=== PATIENT | male | born 1960 | race Caucasian/White ===

== ENCOUNTER 2016-11-06 14:02 | Inpatient (IN) | payer OTHER ==
[2016-11-06 15:00] VITALS: BMI 31.8
--- NOTE | 2016-11-06 16:11 | HP ---
CIWA Score - CIWA Score Nausea/Vomitin Muscle Tremors: 3 Anxiety: 3 Agitation: 3 Paroxysmal Sweats: 2 Orientation: 0-Oriented Tacttile Disturbances: 2-Mild Itch/Numbness/Burn Auditory Disturbances: 2-Mild Harshness/Frighten Visual Disturbances: 2-Mild Sensitivity Headache: 2-Mild CIWA-Ar Total Score: 22 Admission ROS BHS - HPI Chief Complaint: i am here to stop drinking alcohol,i have enough Allergies/Adverse Reactions: Allergies Allergy/AdvReac Type Severity Reaction Status Date / Time shellfish derived Allergy Severe Rash Verified 11/06/16 15:41 No Known Drug Allergies Allergy Verified 11/06/16 15:41 History of Present Illness: tis 56 years old male with alcohol dependence,withdrawal symptom,last detox unknown location syncope alcohol dependence nicotine dependence bipolar disorder mmtp 110 mgs/day,last mediated today longest period of sobriety 16 years bad arthritis of right knee need knee immobilization for 2 years and cane saba's cyst left knee - Ebola screening Have you traveled outside of the country in the last 21 days: No Have you had contact with anyone from an Ebola affected area: No Have you been sick,other than usual withdrawal symptoms: No Patient History - Patient Medical History Hx Anemia: No Hx Asthma: Yes (on albuterol inhealer) Hx Chronic Obstructive Pulmonary Disease (COPD): No Hx Cancer: No Hx Cardiac Disorders: No Hx Congestive Heart Failure: No Hx Hypertension: Yes (on med) Hx Hypercholesterolemia: No Hx Pacemaker: No HX Cerebrovascular Accident: No Hx Seizures: No Hx Dementia: No Hx Diabetes: No Hx Gastrointestinal Disorders: No Hx Liver Disease: No Hx Genitourinary Disorders: No Hx Sexually Transmitted Disorders: No Hx Renal Disease (ESRD): No Hx Thyroid Disease: No Hx Human Immunodeficiency Virus (HIV): No (last 2014 negative) Hx Hepatitis C: No Hx Depression: Yes (on med) Hx Suicide Attempt: No Hx Bipolar Disorder: Yes (bipolar depression) Hx Schizophrenia: No Other Medical History: no suicidal,no homicidal - Patient Surgical History Past Surgical History: Yes Hx Neurologic Surgery: No Hx Cataract Extraction: No Hx Cardiac Surgery: No Hx Lung Surgery: No Hx Breast Surgery: No Hx Breast Biopsy: No Hx Abdominal Surgery: No Hx Appendectomy: No Hx Cholecystectomy: No Hx Genitourinary Surgery: No Hx Section: No Hx Orthopedic Surgery: No Anesthesia Reaction: No - PPD History Previous Implant?: Yes Documented Results: Negative w/proof Implanted On Prior R Admission?: Yes Date: 07/03/14 Results: 0 mm PPD to be Administered?: Yes - Smoking Cessation Smoking history: Current every day smoker Have you smoked in the past 12 months: Yes Aproximately how many cigarettes per day: 5 Hx Chewing Tobacco Use: No Initiated information on smoking cessation: Yes 'Breaking Loose' booklet given: 11/06/16 - Substance & Tx. History Hx Alcohol Use: Yes Hx Substance Use: No Substance Use Type: Alcohol Hx Substance Use Treatment: Yes (06/02 unknown location) - Substances Abused Alcohol-beer Route: Oral Frequency: Daily Amount used: 1-6 pk. (24 oz.) Age of first use: 12 Date of Last Use: 11/06/16 Family Disease History - Family Disease History Family History: Denies Admission Physical Exam S - Vital Signs Vital Signs: Vital Signs - 24 hr 11/06/16 14:58 Temperature 97.5 F L Pulse Rate 73 Respiratory 18 Rate Blood Pressure 146/77 - Physical General Appearance: Yes: Moderate Distress, Tremorous, Irritable, Sweating HEENTM: Yes: MONTY, Pharynx Normal, Nasal Congestion Respiratory: Yes: Wheezing Neck: Yes: Within Normal Limits, Supple, Trachea in good position Breast: Yes: Within Normal Limits Cardiology: Yes: Within Normal Limits, Regular Rhythm, Regular Rate, S1, S2 Abdominal: Yes: Within Normal Limits, Normal Bowel Sounds, Non Tender, Flat, Soft Genitourinary: Yes: Within Normal Limits Back: Yes: Muscle Spasm Musculoskeletal: Yes: Back pain (pain in the right knee on kneee immobilization and cane walking saba's cyst left), Joint Stiffness, Muscle Pain Extremities: Yes: Tremors (pain in the right knee), Other Neurological: Yes: head counselor II-XII NML intact, Fully Oriented, Alert, Motor Strength 5/5 Integumentary: Yes: Dry Lymphatic: Yes: Within Normal Limits - Diagnostic (1) Alcohol dependence with uncomplicated withdrawal Current Visit: Yes Status: Acute (2) Obesity Current Visit: No Status: Acute (3) Opioid dependence on agonist therapy Current Visit: No Status: Acute (4) Bipolar disorder Current Visit: No Status: Chronic (5) HTN (hypertension) Current Visit: No Status: Chronic (6) Nicotine dependence Current Visit: No Status: Chronic (7) Asthma Current Visit: Yes Status: Acute (8) COPD (chronic obstructive pulmonary disease) Current Visit: No Status: Acute (9) Arthritis Current Visit: Yes Status: Acute (10) Use of cane as ambulatory aid Current Visit: Yes Status: Acute (11) Saba cyst Current Visit: Yes Status: Acute Cleared for Admission S - Detox or Rehab [facility] Level of Care: Medically Managed Detox Regimen/Protocol: Librium S Breath Alcohol Content Breath Alcohol Content: 0.051 Urine Drug Screen - Results Drug Screen Negative: No Urine Drug Screen Results: BZO-Benzodiazepines, MTD-Methadone
[2016-11-06] MEDS ORDERED: MAGNESIUM HYDROX 2400MG/30ML ORAL SUSPENSION 30 ML CUP PO PRN (16:24)
[2016-11-06] MEDS ORDERED: diphenhydrAMINE HCL 50 MG CAPSULE PO PRN (16:24)
[2016-11-06] MEDS ORDERED: ACETAMINOPHEN 325 MG TABLET (FP) PO PRN (16:24)
[2016-11-06] MEDS ORDERED: MAGNESIUM CITRATE 300 ML BOTTLE PO PRN (16:24)
[2016-11-06] MEDS ORDERED: LOPERAMIDE HCL 2 MG CAPSULE PO PRN (16:24)
[2016-11-06] MEDS ORDERED: chlordiazePOXIDE HCL 25 MG CAPSULE PO PRN (16:24)
[2016-11-06] MEDS ORDERED: P-EPHED 60MG/TRIPROLIDI 2.5MG TABLET PO PRN (16:24)
[2016-11-06] MEDS ORDERED: MAG HYDROX/AL HYDROX/SIMETH 30 ML UNIT-DOSE CUP PO PRN (16:24)
[2016-11-06] MEDS ORDERED: hydrOXYzine PAMOATE 50 MG CAPSULE (FP) PO PRN (16:24)
[2016-11-06] MEDS ORDERED: IBUPROFEN 400 MG TABLET (FP) PO PRN (16:24)
[2016-11-06] MEDS ORDERED: NICOTINE POLACRILEX 2 MG GUM BC PRN (16:24)
[2016-11-06] MEDS ORDERED: MENTHOL/PHENOL 1 EACH UD MM PRN (16:24)
[2016-11-06] MEDS ORDERED: guaiFENesin/D-METHORPHAN HB 10 ML UNIT-DOSE CUPS PO PRN (16:24)
[2016-11-06] MEDS ORDERED: chlordiazePOXIDE HCL 25 MG CAPSULE PO ONE (18:00)
[2016-11-06] MEDS: ASPIRIN 81 MG CHEWABLE TABLETS PO SCH (18:09)
[2016-11-06] MEDS: amLODIPine BESYLATE 10 MG TABLET (FP) PO SCH (18:09)
[2016-11-06] MEDS: MONTELUKAST NA 10 MG TABLET PO SCH (18:09)
[2016-11-06] MEDS: NICOTINE 14 MG/24 HOURS TOPICAL PATCH TD SCH (18:10)
[2016-11-06 20:49] LABS: URINE APPEARANCE CLEAR; URINE BILIRUBIN NEGATIVE (NEGATIVE); URINE BLOOD NEGATIVE (NEGATIVE); URINE COLOR STRAW; URINE GLUCOSE (UA) NEGATIVE (NEGATIVE); URINE KETONE NEGATIVE (NEGATIVE); URINE LEUK ESTERASE NEGATIVE (NEGATIVE); URINE NITRITE NEGATIVE (NEGATIVE); URINE PROTEIN NEGATIVE (NEGATIVE); URINE UROBILINOGEN NEGATIVE E.U./dl (0.2-1.0)
[2016-11-06] MEDS: chlordiazePOXIDE HCL 25 MG CAPSULE PO SCH (22:11)
[2016-11-06] MEDS: THIAMINE HCL 100 MG TABLET (FP) PO SCH (22:11)
[2016-11-07] MEDS: chlordiazePOXIDE HCL 25 MG CAPSULE PO SCH ×4 (05:54→22:14)
[2016-11-07] MEDS ORDERED: cloNIDine HCL 0.1 MG TABLET PO PRN (07:33)
[2016-11-07] MEDS ORDERED: METHADONE HCL 10 MG TABLET PO ONE (08:52)
[2016-11-07] MEDS ORDERED: METHADONE 80 MG, METHADONE 30 MG PO ONE (09:00)
[2016-11-07] MEDS ORDERED: METHADONE HCL 10 MG TABLET ONE (09:12)
[2016-11-07] MEDS ORDERED: METHADONE HCL 40 MG DISPERSABLE TABLET ONE (09:12)
[2016-11-07] MEDS: ASPIRIN 81 MG CHEWABLE TABLETS PO SCH (09:50)
[2016-11-07] MEDS: amLODIPine BESYLATE 10 MG TABLET (FP) PO SCH (09:50)
[2016-11-07] MEDS: MONTELUKAST NA 10 MG TABLET PO SCH (09:50)
[2016-11-07] MEDS: PRENATAL VITAMINS W/ FOLIC ACID TABLET (FP) PO SCH (09:50)
[2016-11-07 10:11] LABS: MCH 24.7 pg (25.7-33.7); MCHC 31.2 g/dl (32.0-35.9); MEAN PLT VOLUME 8.5 fl (7.5-11.1); PLATELET COUNT 115 K/MM3 (134-434); RDW 16.1 % (11.9-15.9); WHITE BLOOD COUNT 5.3 K/mm3 (4.0-10.0)
--- NOTE | 2016-11-07 10:37 | CONSULT ---
[facility] Psychiatric Consult - Data Date of interview: 11/07/16 Admission source: [facility] Identifying data: This is 56 years old male ambulating with cane, with psychiatric hospitalizatioi history , history of Bipolar Disorder, intoxicated with: Alcohol and Benzodiazepins Substance Abuse History: - Smoking Cessation. Smoking history: Current every day smoker. Have you smoked in the past 12 months: Yes. Aproximately how many cigarettes per day: 5. Hx Chewing Tobacco Use: No. Initiated information on smoking cessation: Yes. 'Breaking Loose' booklet given: 11/06/16. - Substance & Tx. History. Hx Alcohol Use: Yes. Hx Substance Use: No. Substance Use Type : Alcohol. Hx Substance Use Treatment: Yes (06/02 unknown location). - Substances Abused. Alcohol-beer. Route: Oral. Frequency: Daily. Amount used: 1-6 pk. (24 oz.). Age of first use: 12. Date of Last Use: 11/06/16 Medical History: Obesity, Arthritis, Asthma. Saba Cyst history, DVT, COPD, HTN Psychiatric History: Patient reprots to carry Bipolar Disorder with most recent psychiatric admission on more then 5 years ago, reports taking prior to admission. Abilify 10mg poqd. Trazodone 100mg po qhs Physical/Sexual Abuse/Trauma History: Denies Additional Comment: Zoloft 59mg poqd Mental Status Exam - Mental Status Exam Alert and Oriented to: Person Cognitive Function: Fair Patient Appearance: Unkempt Mood: Sad Patient Behavior: Sedated Speech Pattern: Delayed Voice Loudness: Mildly Soft/Quiet Thought Process: Goal Oriented Thought Disorder: Being Controlled Hallucinations: Denies Suicidal Ideation: Denies Homicidal Ideation: Denies Insight/Judgement: Fair Sleep: Difficulty falling asleep Appetite: Weight gain Muscle strength/Tone: Mild Hypotonicity Gait/Station: Shuffling Additional Comments: Abilify 10mg poqd. Trazodone 100mg po qhs Psychiatric Findings - Problem List ([place] 1, 2,3) (1) Alcohol dependence with uncomplicated withdrawal Current Visit: Yes Status: Acute (2) Alcohol dependence Current Visit: No Status: Chronic (3) Bipolar disorder Current Visit: No Status: Chronic (4) Nicotine dependence Current Visit: No Status: Chronic - Initial Treatment Plan Initial Treatment Plan: Abilify 10mg poqd. Trazodone 100mg po qhs
[2016-11-07] MEDS: NICOTINE 14 MG/24 HOURS TOPICAL PATCH TD SCH (10:45)
--- NOTE | 2016-11-07 11:00 | PN ---
S CIWA - CIWA Score Nausea/Vomitin-Mild Nausea/No Vomiting Muscle Tremors: 5 Anxiety: 4-Mod. Anxious/Guarded Agitation: 4-Moderately Restless Paroxysmal Sweats: 3 Orientation: 0-Oriented Tacttile Disturbances: 1-Very Mild Itch/Numbness Auditory Disturbances: 0-None Visual Disturbances: 0-None Headache: 0-None Present CIWA-Ar Total Score: 18 BHS Progress Note (SOAP) Subjective: Anxiety,tremors,sweating,interrupted sleep,restless Objective: 11/07/16 10:57 Vital Signs - 8 hr 11/07/16 11/07/16 11/07/16 03:19 06:27 07:34 Temperature 96.6 F L Pulse Rate 78 75 Respiratory 18 148 H Rate Blood Pressure 162/92 165/100 11/07/16 11/07/16 11/07/16 07:35 07:50 09:38 Temperature 97.2 F L Pulse Rate 77 75 81 Respiratory 20 Rate Blood Pressure 163/101 165/100 147/78 Laboratory Tests 11/06/16 11/07/16 19:30 07:00 WBC 5.3 RBC 5.51 Hgb 13.6 Hct 43.5 MCV 79.0 L MCHC 31.2 L RDW 16.1 H D Plt Count 115 L MPV 8.5 Urine Color Straw Urine Appearance Clear Urine pH 6.0 Ur Specific [place] 1.005 Urine Protein Negative Urine Glucose (UA) Negative Urine Ketones Negative Urine Blood Negative Urine Nitrite Negative Urine Bilirubin Negative Urine Urobilinogen Negative Ur Leukocyte Esterase Negative labs noted Assessment: 11/07/16 10:58 Withdrawal sx. Plan: Continue detox
[2016-11-07 11:16] LABS: ALBUMIN 3.3 g/dl (3.4-5.0); ALK PHOS 100 U/L (45-117); ANION GAP 7 (8-16); BILIRUBIN,TOTAL 0.9 mg/dL (0.2-1.0); CALCIUM 9.1 mg/dL (8.5-10.1); CO2 31 mmol/L (21-32); CREATININE 0.5 mg/dL (0.7-1.3); GLUCOSE,RANDOM 108 mg/dL (74-106); SGOT/AST 22 U/L (15-37); SGPT/ALT 28 U/L (12-78); TOT PROT 7.1 g/dl (6.4-8.2)
[2016-11-07] MEDS: ARIPiprazole 10 MG TABLET PO SCH (12:45)
--- NOTE | 2016-11-07 17:15 | EKG ---
Test Reason : Blood Pressure : / mmHG Vent. Rate : 068 BPM Atrial Rate : 068 BPM P-R Int : 170 ms QRS Dur : 114 ms QT Int : 412 ms P-R-T Axes : 055 -16 049 degrees QTc Int : 438 ms NORMAL SINUS RHYTHM INCOMPLETE RIGHT BUNDLE BRANCH BLOCK INFERIOR INFARCT (CITED ON OR BEFORE 06-NOV-2016) ABNORMAL ECG WHEN COMPARED WITH ECG OF 06-NOV-2016 17:02, NO SIGNIFICANT CHANGE WAS FOUND Confirmed by SON LYMAN MD ([id number]) on 11/07/2016 5:15:31 PM Referred By: Ko Weiner Confirmed By:SON LYMAN MD
--- NOTE | 2016-11-07 17:18 | EKG ---
Test Reason : Blood Pressure : / mmHG Vent. Rate : 064 BPM Atrial Rate : 064 BPM P-R Int : 174 ms QRS Dur : 112 ms QT Int : 430 ms P-R-T Axes : 047 -03 058 degrees QTc Int : 443 ms NORMAL SINUS RHYTHM INFERIOR INFARCT , AGE UNDETERMINED ABNORMAL ECG NO PREVIOUS ECGS AVAILABLE Confirmed by ESMER PINEDA, SON ([id number]) on 11/07/2016 5:17:34 PM Referred By: Ko Weiner Confirmed By:SON LYMAN MD
[2016-11-07] MEDS: ALBUTEROL SO4 6.7 GM HFA INHALER IH PRN (18:26)
[2016-11-07] MEDS: traZODone HCL 100 MG TABLET (FP) PO SCH (22:14)
[2016-11-07] MEDS: THIAMINE HCL 100 MG TABLET (FP) PO SCH (22:14)
[2016-11-08] MEDS ORDERED: METHADONE HCL 40 MG DISPERSABLE TABLET ONE (04:45)
[2016-11-08] MEDS ORDERED: METHADONE HCL 10 MG TABLET ONE (04:45)
[2016-11-08] MEDS: METHADONE 80 MG, METHADONE 30 MG PO SCH (05:14)
[2016-11-08] MEDS: chlordiazePOXIDE HCL 25 MG CAPSULE PO SCH ×3 (05:16→17:07)
[2016-11-08] MEDS ORDERED: METHADONE HCL 10 MG TABLET PO SCH (06:00)
[2016-11-08] MEDS: MONTELUKAST NA 10 MG TABLET PO SCH (10:09)
[2016-11-08] MEDS: ASPIRIN 81 MG CHEWABLE TABLETS PO SCH (10:09)
[2016-11-08] MEDS: NICOTINE 14 MG/24 HOURS TOPICAL PATCH TD SCH (10:09)
[2016-11-08] MEDS: PRENATAL VITAMINS W/ FOLIC ACID TABLET (FP) PO SCH (10:09)
[2016-11-08] MEDS: amLODIPine BESYLATE 10 MG TABLET (FP) PO SCH (10:09)
[2016-11-08] MEDS: ARIPiprazole 10 MG TABLET PO SCH (10:09)
--- NOTE | 2016-11-08 12:15 | PN ---
[facility] CIWA - CIWA Score Nausea/Vomitin-No Nausea/No Vomiting Muscle Tremors: 4-Moderate,w/Arms Extend Anxiety: 4-Mod. Anxious/Guarded Agitation: 3 Paroxysmal Sweats: 2 Orientation: 4Disoriented Place/Person Tacttile Disturbances: 3-Moderate Itch/Numb/Burn Auditory Disturbances: 0-None Visual Disturbances: 0-None Headache: 0-None Present CIWA-Ar Total Score: 20 BHS Progress Note (SOAP) Subjective: Interrupted Sleep, Back ache, Tremors, Constipation, Sweating. Objective: PT. A & O X 1 (DISORIENTED ABOUT DAY/DATE AND ABOUT LOCATION). 11/08/16 12:13 Laboratory Last Values WBC 5.3 K/mm3 (4.0-10.0) 11/07/16 07:00 RBC 5.51 M/mm3 (4.00-5.60) 11/07/16 07:00 Hgb 13.6 GM/dL (11.7-16.9) 11/07/16 07:00 Hct 43.5 % (35.4-49) 11/07/16 07:00 MCV 79.0 fl (80-96) L 11/07/16 07:00 MCHC 31.2 g/dl (32.0-35.9) L 11/07/16 07:00 RDW 16.1 % (11.9-15.9) H D 11/07/16 07:00 Plt Count 115 K/MM3 (134-434) L 11/07/16 07:00 MPV 8.5 fl (7.5-11.1) 11/07/16 07:00 Sodium 139 mmol/L (136-145) 11/07/16 07:00 Potassium 4.3 mmol/L (3.5-5.1) 11/07/16 07:00 Chloride 101 mmol/L (98-107) 11/07/16 07:00 Carbon Dioxide 31 mmol/L (21-32) 11/07/16 07:00 Anion Gap 7 (8-16) L 11/07/16 07:00 BUN 13 mg/dL (7-18) 11/07/16 07:00 Creatinine 0.5 mg/dL (0.7-1.3) L 11/07/16 07:00 Creat Clearance w eGFR > 60 (>60) 11/07/16 07:00 Random Glucose 108 mg/dL (74-106) H 11/07/16 07:00 Calcium 9.1 mg/dL (8.5-10.1) 11/07/16 07:00 Total Bilirubin 0.9 mg/dL (0.2-1.0) D 11/07/16 07:00 AST 22 U/L (15-37) D 11/07/16 07:00 ALT 28 U/L (12-78) D 11/07/16 07:00 Alkaline Phosphatase 100 U/L (45-117) 11/07/16 07:00 Total Protein 7.1 g/dl (6.4-8.2) 11/07/16 07:00 Albumin 3.3 g/dl (3.4-5.0) L 11/07/16 07:00 Urine Color Straw 11/06/16 19:30 Urine Appearance Clear 11/06/16 19:30 Urine pH 6.0 (5.0-8.0) 11/06/16 19:30 Ur Specific [place] 1.005 (1.001-1.035) 11/06/16 19:30 Urine Protein Negative (NEGATIVE) 11/06/16 19:30 Urine Glucose (UA) Negative (NEGATIVE) 11/06/16 19:30 Urine Ketones Negative (NEGATIVE) 11/06/16 19:30 Urine Blood Negative (NEGATIVE) 11/06/16 19:30 Urine Nitrite Negative (NEGATIVE) 11/06/16 19:30 Urine Bilirubin Negative (NEGATIVE) 11/06/16 19:30 Urine Urobilinogen Negative E.U./dl (0.2-1.0) 11/06/16 19:30 Ur Leukocyte Esterase Negative (NEGATIVE) 11/06/16 19:30 RPR Titer Nonreactive (NONREACTIVE) 11/07/16 07:00 LABS NOTED. Assessment: 11/08/16 12:14 WITHDRAWAL SYMPTOMS. Plan: CONTINUE DETOX. PRN MILK OF MAGNESIA FOR CONSTIPATION. ADVISED PATIENT TO FOLLOW-UP WITH EMERGENCY ROOM NURSE / REHAB MEDICAL PROVIDER AFTER DISCHARGE FROM DETOX FOR GENERAL MEDICAL ASSESSMENT AND FOR ANY ABNORMAL ADMISSION LAB VALUES.
[2016-11-08] MEDS: THIAMINE HCL 100 MG TABLET (FP) PO SCH (22:17)
[2016-11-08] MEDS: traZODone HCL 100 MG TABLET (FP) PO SCH (22:17)
[2016-11-08] MEDS: chlordiazePOXIDE 5 MG CAPSULE PO SCH (22:17)
[2016-11-09] MEDS ORDERED: METHADONE HCL 10 MG TABLET ONE (03:40)
[2016-11-09] MEDS ORDERED: METHADONE HCL 40 MG DISPERSABLE TABLET ONE (03:40)
[2016-11-09] MEDS: chlordiazePOXIDE 5 MG CAPSULE PO SCH ×3 (05:40→17:48)
[2016-11-09] MEDS: METHADONE 80 MG, METHADONE 30 MG PO SCH (05:40)
[2016-11-09] MEDS: PRENATAL VITAMINS W/ FOLIC ACID TABLET (FP) PO SCH (10:23)
[2016-11-09] MEDS: ARIPiprazole 10 MG TABLET PO SCH (10:23)
[2016-11-09] MEDS: amLODIPine BESYLATE 10 MG TABLET (FP) PO SCH (10:23)
[2016-11-09] MEDS: MONTELUKAST NA 10 MG TABLET PO SCH (10:23)
[2016-11-09] MEDS: ASPIRIN 81 MG CHEWABLE TABLETS PO SCH (10:23)
[2016-11-09] MEDS: NICOTINE 14 MG/24 HOURS TOPICAL PATCH TD SCH (10:24)
--- NOTE | 2016-11-09 13:28 | PN ---
BHS Progress Note (SOAP) Subjective: Sweating,interrupted sleep,restless Objective: 11/09/16 13:27 Vital Signs - 8 hr 11/09/16 11/09/16 06:19 09:28 Temperature 97.6 F 96.7 F L Pulse Rate 77 76 Respiratory 18 18 Rate Blood Pressure 148/85 161/81 Laboratory Tests 11/06/16 11/07/16 11/07/16 19:30 07:00 07:00 WBC 5.3 RBC 5.51 Hgb 13.6 Hct 43.5 MCV 79.0 L MCHC 31.2 L RDW 16.1 H D Plt Count 115 L MPV 8.5 Sodium 139 Potassium 4.3 Chloride 101 Carbon Dioxide 31 Anion Gap 7 L BUN 13 Creatinine 0.5 L Creat Clearance w eGFR > 60 Random Glucose 108 H Calcium 9.1 Total Bilirubin 0.9 D AST 22 D ALT 28 D Alkaline Phosphatase 100 Total Protein 7.1 Albumin 3.3 L Urine Color Straw Urine Appearance Clear Urine pH 6.0 Ur Specific [place] 1.005 Urine Protein Negative Urine Glucose (UA) Negative Urine Ketones Negative Urine Blood Negative Urine Nitrite Negative Urine Bilirubin Negative Urine Urobilinogen Negative Ur Leukocyte Esterase Negative RPR Titer 11/07/16 07:00 WBC RBC Hgb Hct MCV MCHC RDW Plt Count MPV Sodium Potassium Chloride Carbon Dioxide Anion Gap BUN Creatinine Creat Clearance w eGFR Random Glucose Calcium Total Bilirubin AST ALT Alkaline Phosphatase Total Protein Albumin Urine Color Urine Appearance Urine pH Ur Specific [place] Urine Protein Urine Glucose (UA) Urine Ketones Urine Blood Urine Nitrite Urine Bilirubin Urine Urobilinogen Ur Leukocyte Esterase RPR Titer Nonreactive labs noted Assessment: 11/09/16 13:27 Withdrawal sx. Plan: Continue detox
[2016-11-09] MEDS: LISINOPRIL 10 MG TABLET (FP) PO SCH (14:23)
[2016-11-09] MEDS: ALBUTEROL SO4 6.7 GM HFA INHALER IH PRN (21:23)
[2016-11-09] MEDS: THIAMINE HCL 100 MG TABLET (FP) PO SCH (22:21)
[2016-11-09] MEDS: traZODone HCL 100 MG TABLET (FP) PO SCH (22:21)
[2016-11-09] MEDS: chlordiazePOXIDE HCL 10 MG CAPSULE PO SCH (22:21)
[2016-11-10] MEDS ORDERED: METHADONE HCL 40 MG DISPERSABLE TABLET ONE (03:08)
[2016-11-10] MEDS ORDERED: METHADONE HCL 10 MG TABLET ONE (03:08)
[2016-11-10] MEDS: METHADONE 80 MG, METHADONE 30 MG PO SCH (05:32)
[2016-11-10] MEDS: chlordiazePOXIDE HCL 10 MG CAPSULE PO SCH ×3 (05:32→10:42)
--- NOTE | 2016-11-10 08:41 | DS ---
[facility] Detox Discharge Summary Admission Date: 11/06/16 Discharge Date: 11/10/16 - History Present History: Alcohol Dependence, MMTP Pertinent Past History: Arthritis Asthma HTN - Physical Exam Results Vital Signs: Vital Signs Temperature 97.4 F L 11/10/16 06:23 Pulse Rate 82 11/10/16 07:13 Respiratory Rate 18 11/10/16 06:23 Blood Pressure 132/75 11/10/16 07:13 O2 Sat by Pulse Oximetry (%) Pertinent Admission Physical Exam Findings: Withdrawal sx. Laboratory Last Values WBC 5.3 K/mm3 (4.0-10.0) 11/07/16 07:00 RBC 5.51 M/mm3 (4.00-5.60) 11/07/16 07:00 Hgb 13.6 GM/dL (11.7-16.9) 11/07/16 07:00 Hct 43.5 % (35.4-49) 11/07/16 07:00 MCV 79.0 fl (80-96) L 11/07/16 07:00 MCHC 31.2 g/dl (32.0-35.9) L 11/07/16 07:00 RDW 16.1 % (11.9-15.9) H D 11/07/16 07:00 Plt Count 115 K/MM3 (134-434) L 11/07/16 07:00 MPV 8.5 fl (7.5-11.1) 11/07/16 07:00 Sodium 139 mmol/L (136-145) 11/07/16 07:00 Potassium 4.3 mmol/L (3.5-5.1) 11/07/16 07:00 Chloride 101 mmol/L (98-107) 11/07/16 07:00 Carbon Dioxide 31 mmol/L (21-32) 11/07/16 07:00 Anion Gap 7 (8-16) L 11/07/16 07:00 BUN 13 mg/dL (7-18) 11/07/16 07:00 Creatinine 0.5 mg/dL (0.7-1.3) L 11/07/16 07:00 Creat Clearance w eGFR > 60 (>60) 11/07/16 07:00 Random Glucose 108 mg/dL (74-106) H 11/07/16 07:00 Calcium 9.1 mg/dL (8.5-10.1) 11/07/16 07:00 Total Bilirubin 0.9 mg/dL (0.2-1.0) D 11/07/16 07:00 AST 22 U/L (15-37) D 11/07/16 07:00 ALT 28 U/L (12-78) D 11/07/16 07:00 Alkaline Phosphatase 100 U/L (45-117) 11/07/16 07:00 Total Protein 7.1 g/dl (6.4-8.2) 11/07/16 07:00 Albumin 3.3 g/dl (3.4-5.0) L 11/07/16 07:00 Urine Color Straw 11/06/16 19:30 Urine Appearance Clear 11/06/16 19:30 Urine pH 6.0 (5.0-8.0) 11/06/16 19:30 Ur Specific [place] 1.005 (1.001-1.035) 11/06/16 19:30 Urine Protein Negative (NEGATIVE) 11/06/16 19:30 Urine Glucose (UA) Negative (NEGATIVE) 11/06/16 19:30 Urine Ketones Negative (NEGATIVE) 11/06/16 19:30 Urine Blood Negative (NEGATIVE) 11/06/16 19:30 Urine Nitrite Negative (NEGATIVE) 11/06/16 19:30 Urine Bilirubin Negative (NEGATIVE) 11/06/16 19:30 Urine Urobilinogen Negative E.U./dl (0.2-1.0) 11/06/16 19:30 Ur Leukocyte Esterase Negative (NEGATIVE) 11/06/16 19:30 RPR Titer Nonreactive (NONREACTIVE) 11/07/16 07:00 labs noted - Treatment Hospital Course: Detox Protocol Followed, Detoxed Safely, Responded well, Discharged Condition Good, Rehab Referral Accepted Patient has Accepted a Rehab Referral to: [facility] meetings - Medication Discharge Medications: Ambulatory Orders Aspirin [ASA -] 81 mg PO DAILY 07/01/14 Albuterol Sulfate Inhaler - [Ventolin HFA Inhaler -] 2 inh PO Q4H PRN 30 Days Amlodipine Besylate [Norvasc -] 10 mg PO DAILY #30 tablet 07/06/14 Montelukast Na [Singulair -] 10 mg PO DAILY 30 Days 07/06/14 Aripiprazole [Abilify -] 10 mg PO DAILY 11/06/16 Trazodone HCl [Desyrel -] 100 mg PO HS 11/06/16 Aripiprazole [Abilify -] 10 mg PO DAILY #30 tablet 11/07/16 Trazodone HCl [Desyrel -] 100 mg PO HS #30 tablet 11/07/16 - Diagnosis (1) Alcohol dependence with uncomplicated withdrawal Current Visit: Yes Status: Acute (2) Arthritis Current Visit: Yes Status: Acute (3) Asthma Current Visit: Yes Status: Acute (4) Obesity Current Visit: No Status: Acute (5) Opioid dependence on agonist therapy Current Visit: No Status: Acute (6) HTN (hypertension) Current Visit: No Status: Chronic (7) Nicotine dependence Current Visit: No Status: Chronic (8) Bipolar disorder Current Visit: No Status: Chronic - AMA Did Patient Leave Against Medical Advice: No
[2016-11-10 09:35] VITALS: BP 121/78; PULSE 75; TEMP 96.7
[2016-11-10] MEDS: PRENATAL VITAMINS W/ FOLIC ACID TABLET (FP) PO SCH (10:38)
[2016-11-10] MEDS: ASPIRIN 81 MG CHEWABLE TABLETS PO SCH (10:38)
[2016-11-10] MEDS: LISINOPRIL 10 MG TABLET (FP) PO SCH (10:39)
[2016-11-10] MEDS: MONTELUKAST NA 10 MG TABLET PO SCH (10:39)
[2016-11-10] MEDS: ARIPiprazole 10 MG TABLET PO SCH (10:39)
[2016-11-10] MEDS: NICOTINE 14 MG/24 HOURS TOPICAL PATCH TD SCH (10:39)
[2016-11-10] MEDS: amLODIPine BESYLATE 10 MG TABLET (FP) PO SCH (10:39)
== END 2016-11-10 11:11 | disposition other institution (70) | DRG 773 ==
LOC: YASAS 14:02 → Y3N 16:31
PROVIDERS: ADMIT Internal Medicine Addiction Medicine; ATTEND Internal Medicine Addiction Medicine
PROC: HZ2ZZZZ Detoxification Services for Substance Abuse Treatment (ICD-10-PCS; principal; 2016-11-10)
DX: F10.230 Alcohol dependence with withdrawal, uncomplicated (principal); F11.20 Opioid dependence, uncomplicated; F17.210 Nicotine dependence, cigarettes, uncomplicated; F31.9 Bipolar disorder, unspecified; I10 Essential (primary) hypertension; M12.9 Arthropathy, unspecified; J45.909 Unspecified asthma, uncomplicated; M71.22 Synovial cyst of popliteal space [Baker], left knee; R26.2 Difficulty in walking, not elsewhere classified; R63.4 Abnormal weight loss; E66.09 Other obesity due to excess calories; Z68.31 Body mass index [BMI] 31.0-31.9, adult
CPT/HCPCS: 36415; 80053; 81003; 85027; 86593; 93005; 93010

== ENCOUNTER 2016-11-10 11:23 | Inpatient (IN) | payer OTHER ==
[2016-11-10 12:59] VITALS: BMI 30.8
[2016-11-10] MEDS ORDERED: MAG HYDROX/AL HYDROX/SIMETH 30 ML UNIT-DOSE CUP PO PRN (13:15)
[2016-11-10] MEDS ORDERED: LOPERAMIDE HCL 2 MG CAPSULE PO PRN (13:15)
[2016-11-10] MEDS ORDERED: guaiFENesin/D-METHORPHAN HB 10 ML UNIT-DOSE CUPS PO PRN (13:15)
[2016-11-10] MEDS ORDERED: MAGNESIUM HYDROX 2400MG/30ML ORAL SUSPENSION 30 ML CUP PO PRN (13:15)
[2016-11-10] MEDS ORDERED: P-EPHED 60MG/TRIPROLIDI 2.5MG TABLET PO PRN (13:15)
[2016-11-10] MEDS ORDERED: NICOTINE POLACRILEX 2 MG GUM BUC PRN (13:15)
[2016-11-10] MEDS ORDERED: MAGNESIUM CITRATE 300 ML BOTTLE PO PRN (13:15)
[2016-11-10] MEDS ORDERED: MENTHOL/PHENOL 1 EACH UD MM PRN (13:15)
--- NOTE | 2016-11-10 13:21 | HP ---
[facility]ONNE PINEDA Rehab Assess/Revision - Admission History Ad[facility]hab [facility] Date of Admission to Rehab: 11/10/16 - Vital signs Vital Signs: Vital Signs Period Temp Pulse Resp BP Sys/[place] Pulse Ox Last 24 Hr 98.5 F 79 18 154/78 - Findings Detox History & Physical reviewed: Yes Concur with findings: Yes
[2016-11-10] MEDS: IBUPROFEN 400 MG TABLET (FP) PO PRN (19:27)
[2016-11-10] MEDS: THIAMINE HCL 100 MG TABLET (FP) PO SCH (21:58)
[2016-11-10] MEDS: MONTELUKAST NA 10 MG TABLET PO SCH (21:58)
[2016-11-10] MEDS ORDERED: traZODone HCL 50 MG TABLET (FP) PO SCH (22:00)
[2016-11-11] MEDS ORDERED: METHADONE HCL 40 MG DISPERSABLE TABLET ONE (04:22)
[2016-11-11] MEDS ORDERED: METHADONE HCL 10 MG TABLET ONE (04:22)
[2016-11-11] MEDS ORDERED: PT OWN MED DRAWER 7, Y5N ONE (04:42)
[2016-11-11] MEDS: ALBUTEROL SO4 6.7 GM HFA INHALER IH PRN ×2 (04:43→09:45)
[2016-11-11] MEDS: METHADONE 80 MG, METHADONE 30 MG PO SCH (05:57)
[2016-11-11] MEDS ORDERED: METHADONE HCL 10 MG TABLET PO SCH (06:00)
[2016-11-11] MEDS: ACETAMINOPHEN 325 MG TABLET (FP) PO PRN (06:00)
--- NOTE | 2016-11-11 08:13 | HP ---
Psychiatrist Admission - Data Date of interview: 11/11/16 Admission source: [facility] Identifying data: This is the first [facility] admission for this 56 years old single male, father of 3 sons, unemployed on SSI, homeless seeking rehab treatment for alcohol Medical History: Significant for Asthma/COPD, HTN, Obesity, Arthritis right knee , Saba's cyst right knee and S/P DVT. Patient attends [facility] and he is on Methadone 110 mg po daily. Smokes 5 cigarettes daily Psychiatric History: Patient is not only a poor historian but has difficulty remaining awake during the interview. However, he reports being diagnosed with Bipolar Disorder a few years ago . Denies previous psychiatric hospitalization. Claims to get OPD care at [facility] and he is prescribed Abilify 10 mg po daily and Trazadone 100 mg po HS. Reports history of suicidal attempt by cutting his wrist Vital Signs: Vital Signs - 24 hr 11/10/16 11/11/16 11/11/16 12:46 00:30 03:30 Temperature 98.5 F Pulse Rate 79 Respiratory 18 20 20 Rate Blood Pressure 154/78 11/11/16 06:52 Temperature 98.3 F Pulse Rate 83 Respiratory 20 Rate Blood Pressure 156/75 Allergies/Adverse Reactions: Allergies Allergy/AdvReac Type Severity Reaction Status Date / Time shellfish derived Allergy Severe Rash Verified 11/10/16 12:42 No Known Drug Allergies Allergy Verified 11/10/16 12:42 Date of last physical exam: 11/06/16 Concur with the findings of this exam: Yes - Substance Abuse/Tx History Hx Alcohol Use: Yes Hx Substance Use: No Substance Use Type: Alcohol (Started drinking alcohol at age 12, consumes 6x 24oz of beer daily. Last drink on 11/06/16) Hx Substance Use Treatment: Yes (2 previous inpt detox @ [facility]) - Admission Criteria Poor recovery environment: Yes Comorbidities: Yes Lacks judgement: Yes Mental Status Exam - Mental Status Exam Alert and Oriented to: Time, Place, Person Cognitive Function: Fair Patient Appearance: Well Groomed Mood: Hopeful, Euthymic Affect: Appropriate Patient Behavior: Asleep, Cooperative (superficially) Speech Pattern: Clear Voice Loudness: Normal Thought Process: Intact Hallucinations: Denies Suicidal Ideation: Denies Homicidal Ideation: Denies Insight/Judgement: Fair Sleep: Poorly Appetite: Good Muscle strength/Tone: Normal Gait/Station: Normal Psychiatric Findings - Problem List ([place] 1, 2,3) (1) Alcohol dependence with uncomplicated withdrawal Current Visit: No Status: Acute (2) Nicotine dependence Current Visit: No Status: Chronic (3) Opioid dependence on agonist therapy Current Visit: No Status: Acute (4) Bipolar disorder Current Visit: Yes Status: Acute (5) Asthma Current Visit: Yes Status: Acute (6) COPD (chronic obstructive pulmonary disease) Current Visit: Yes Status: Acute (7) Saba cyst Current Visit: No Status: Acute (8) DVT (deep venous thrombosis) Current Visit: No Status: Acute (9) Obesity Current Visit: No Status: Acute (10) HTN (hypertension) Current Visit: No Status: Chronic (11) Arthritis of right knee Current Visit: Yes Status: Acute - Initial Treatment Plan Initial Treatment Plan: 1) Continue Abilify 10 mg po daily. 2) Start Trazadone 100 mg po prn for insomnia. 3) Monitor progress
[2016-11-11] MEDS: PRENATAL VITAMINS W/ FOLIC ACID TABLET (FP) PO SCH (09:45)
[2016-11-11] MEDS: ASPIRIN 81 MG CHEWABLE TABLETS PO SCH (09:45)
[2016-11-11] MEDS: ARIPiprazole 10 MG TABLET PO SCH (09:45)
[2016-11-11] MEDS: amLODIPine BESYLATE 10 MG TABLET (FP) PO SCH (09:45)
[2016-11-11] MEDS: LISINOPRIL 10 MG TABLET (FP) PO SCH (09:45)
[2016-11-11] MEDS: NICOTINE 14 MG/24 HOURS TOPICAL PATCH TD SCH (09:48)
[2016-11-11] MEDS: MONTELUKAST NA 10 MG TABLET PO SCH (21:26)
[2016-11-11] MEDS: THIAMINE HCL 100 MG TABLET (FP) PO SCH (21:26)
[2016-11-12] MEDS ORDERED: METHADONE HCL 10 MG TABLET ONE (04:07)
[2016-11-12] MEDS ORDERED: METHADONE HCL 40 MG DISPERSABLE TABLET ONE (04:07)
[2016-11-12] MEDS: METHADONE 80 MG, METHADONE 30 MG PO SCH (06:04)
[2016-11-12] MEDS ORDERED: LIDOCAINE HCL 5% TOP OINTMENT 50 GM TUBE TP PRN (08:02)
[2016-11-12] MEDS: PRENATAL VITAMINS W/ FOLIC ACID TABLET (FP) PO SCH (10:32)
[2016-11-12] MEDS: NICOTINE 14 MG/24 HOURS TOPICAL PATCH TD SCH (10:33)
[2016-11-12] MEDS: ARIPiprazole 10 MG TABLET PO SCH (10:33)
[2016-11-12] MEDS: ASPIRIN 81 MG CHEWABLE TABLETS PO SCH (10:33)
[2016-11-12] MEDS: amLODIPine BESYLATE 10 MG TABLET (FP) PO SCH (10:33)
[2016-11-12] MEDS: LISINOPRIL 10 MG TABLET (FP) PO SCH (10:33)
[2016-11-12] MEDS: IBUPROFEN 400 MG TABLET (FP) PO PRN (21:03)
[2016-11-12] MEDS: traZODone HCL 100 MG TABLET (FP) PO PRN (21:03)
[2016-11-12] MEDS: THIAMINE HCL 100 MG TABLET (FP) PO SCH (21:03)
[2016-11-12] MEDS: MONTELUKAST NA 10 MG TABLET PO SCH (21:04)
[2016-11-13] MEDS ORDERED: METHADONE HCL 10 MG TABLET ONE (03:58)
[2016-11-13] MEDS ORDERED: METHADONE HCL 40 MG DISPERSABLE TABLET ONE (03:58)
[2016-11-13] MEDS: METHADONE 80 MG, METHADONE 30 MG PO SCH (06:00)
[2016-11-13] MEDS: NICOTINE 14 MG/24 HOURS TOPICAL PATCH TD SCH (10:31)
[2016-11-13] MEDS: amLODIPine BESYLATE 10 MG TABLET (FP) PO SCH (10:31)
[2016-11-13] MEDS: LISINOPRIL 10 MG TABLET (FP) PO SCH (10:31)
[2016-11-13] MEDS: ARIPiprazole 10 MG TABLET PO SCH (10:31)
[2016-11-13] MEDS: ASPIRIN 81 MG CHEWABLE TABLETS PO SCH (10:31)
[2016-11-13] MEDS: PRENATAL VITAMINS W/ FOLIC ACID TABLET (FP) PO SCH (10:31)
[2016-11-13] MEDS: MONTELUKAST NA 10 MG TABLET PO SCH (21:39)
[2016-11-13] MEDS: NAPROXEN 500 MG TABLET (FP) PO SCH (21:39)
[2016-11-13] MEDS: THIAMINE HCL 100 MG TABLET (FP) PO SCH (21:39)
[2016-11-14] MEDS ORDERED: METHADONE HCL 10 MG TABLET ONE (05:19)
[2016-11-14] MEDS ORDERED: METHADONE HCL 40 MG DISPERSABLE TABLET ONE (05:19)
[2016-11-14] MEDS: METHADONE 80 MG, METHADONE 30 MG PO SCH (06:37)
[2016-11-14] MEDS: ALBUTEROL SO4 6.7 GM HFA INHALER IH PRN (07:36)
[2016-11-14] MEDS ORDERED: PT OWN MED DRAWER 7, Y5N ONE ×2 (07:37→09:04)
[2016-11-14] MEDS: NAPROXEN 500 MG TABLET (FP) PO SCH ×2 (10:34→21:16)
[2016-11-14] MEDS: amLODIPine BESYLATE 10 MG TABLET (FP) PO SCH (10:34)
[2016-11-14] MEDS: ASPIRIN 81 MG CHEWABLE TABLETS PO SCH (10:35)
[2016-11-14] MEDS: PRENATAL VITAMINS W/ FOLIC ACID TABLET (FP) PO SCH (10:35)
[2016-11-14] MEDS: ARIPiprazole 10 MG TABLET PO SCH (10:35)
[2016-11-14] MEDS: LISINOPRIL 10 MG TABLET (FP) PO SCH (10:35)
[2016-11-14] MEDS: NICOTINE 14 MG/24 HOURS TOPICAL PATCH TD SCH (10:36)
[2016-11-14] MEDS: BISMUTH SUBSALICYLATE 262 MG/15 ML BTL PO PRN (19:50)
[2016-11-14] MEDS: MONTELUKAST NA 10 MG TABLET PO SCH (21:16)
[2016-11-14] MEDS: THIAMINE HCL 100 MG TABLET (FP) PO SCH (21:16)
[2016-11-14] MEDS: diphenhydrAMINE HCL 50 MG CAPSULE PO PRN (21:17)
[2016-11-15] MEDS: BISMUTH SUBSALICYLATE 262 MG/15 ML BTL PO PRN (04:11)
[2016-11-15] MEDS ORDERED: PT OWN MED DRAWER 7, Y5N ONE (04:13)
[2016-11-15] MEDS ORDERED: METHADONE HCL 10 MG TABLET ONE (04:31)
[2016-11-15] MEDS ORDERED: METHADONE HCL 40 MG DISPERSABLE TABLET ONE (04:31)
[2016-11-15] MEDS ORDERED: METHADONE HCL 40 MG DISPERSABLE TABLET PO SCH (06:00)
[2016-11-15] MEDS: METHADONE 80 MG, METHADONE 20 MG PO SCH (06:47)
[2016-11-15] MEDS: LISINOPRIL 10 MG TABLET (FP) PO SCH (10:41)
[2016-11-15] MEDS: PRENATAL VITAMINS W/ FOLIC ACID TABLET (FP) PO SCH (10:41)
[2016-11-15] MEDS: ARIPiprazole 10 MG TABLET PO SCH (10:41)
[2016-11-15] MEDS: NAPROXEN 500 MG TABLET (FP) PO SCH ×2 (10:41→21:29)
[2016-11-15] MEDS: amLODIPine BESYLATE 10 MG TABLET (FP) PO SCH (10:41)
[2016-11-15] MEDS: ASPIRIN 81 MG CHEWABLE TABLETS PO SCH (10:41)
[2016-11-15] MEDS: NICOTINE 14 MG/24 HOURS TOPICAL PATCH TD SCH (10:42)
[2016-11-15] MEDS: THIAMINE HCL 100 MG TABLET (FP) PO SCH (21:29)
[2016-11-15] MEDS: MONTELUKAST NA 10 MG TABLET PO SCH (21:29)
[2016-11-16] MEDS ORDERED: PT OWN MED DRAWER 7, Y5N ONE (00:03)
[2016-11-16] MEDS: ALBUTEROL SO4 6.7 GM HFA INHALER IH PRN (00:18)
[2016-11-16] MEDS ORDERED: METHADONE HCL 10 MG TABLET ONE (04:12)
[2016-11-16] MEDS ORDERED: METHADONE HCL 40 MG DISPERSABLE TABLET ONE (04:13)
[2016-11-16] MEDS: METHADONE 80 MG, METHADONE 20 MG PO SCH (06:05)
[2016-11-16] MEDS: PRENATAL VITAMINS W/ FOLIC ACID TABLET (FP) PO SCH (10:20)
[2016-11-16] MEDS: amLODIPine BESYLATE 10 MG TABLET (FP) PO SCH (10:20)
[2016-11-16] MEDS: LISINOPRIL 10 MG TABLET (FP) PO SCH (10:20)
[2016-11-16] MEDS: ARIPiprazole 10 MG TABLET PO SCH (10:20)
[2016-11-16] MEDS: ASPIRIN 81 MG CHEWABLE TABLETS PO SCH (10:20)
[2016-11-16] MEDS: NAPROXEN 500 MG TABLET (FP) PO SCH ×2 (10:20→22:12)
[2016-11-16] MEDS: NICOTINE 14 MG/24 HOURS TOPICAL PATCH TD SCH (10:21)
[2016-11-16] MEDS: ACETAMINOPHEN 325 MG TABLET (FP) PO PRN (12:29)
[2016-11-16] MEDS: THIAMINE HCL 100 MG TABLET (FP) PO SCH (22:12)
[2016-11-16] MEDS: MONTELUKAST NA 10 MG TABLET PO SCH (22:12)
[2016-11-16] MEDS: diphenhydrAMINE HCL 50 MG CAPSULE PO PRN (22:12)
[2016-11-17] MEDS ORDERED: METHADONE HCL 10 MG TABLET ONE (05:22)
[2016-11-17] MEDS ORDERED: METHADONE HCL 40 MG DISPERSABLE TABLET ONE (05:23)
[2016-11-17] MEDS: METHADONE 80 MG, METHADONE 20 MG PO SCH (05:53)
[2016-11-17] MEDS: NICOTINE 14 MG/24 HOURS TOPICAL PATCH TD SCH (10:37)
[2016-11-17] MEDS: NAPROXEN 500 MG TABLET (FP) PO SCH ×2 (10:37→21:36)
[2016-11-17] MEDS: PRENATAL VITAMINS W/ FOLIC ACID TABLET (FP) PO SCH (10:37)
[2016-11-17] MEDS: amLODIPine BESYLATE 10 MG TABLET (FP) PO SCH (10:37)
[2016-11-17] MEDS: ASPIRIN 81 MG CHEWABLE TABLETS PO SCH (10:37)
[2016-11-17] MEDS: ARIPiprazole 10 MG TABLET PO SCH (10:37)
[2016-11-17] MEDS: LISINOPRIL 10 MG TABLET (FP) PO SCH (10:37)
[2016-11-17] MEDS: THIAMINE HCL 100 MG TABLET (FP) PO SCH (21:36)
[2016-11-17] MEDS: MONTELUKAST NA 10 MG TABLET PO SCH (21:36)
[2016-11-17] MEDS: traZODone HCL 100 MG TABLET (FP) PO PRN (21:38)
[2016-11-18] MEDS ORDERED: METHADONE HCL 10 MG TABLET ONE (04:51)
[2016-11-18] MEDS ORDERED: METHADONE HCL 40 MG DISPERSABLE TABLET ONE (04:51)
[2016-11-18] MEDS: METHADONE 80 MG, METHADONE 20 MG PO SCH (05:47)
[2016-11-18 07:21] VITALS: BP 149/94; PULSE 71; TEMP 98.1
--- NOTE | 2016-11-18 08:51 | PN ---
Psychiatric Progress Note Vital Signs: Vital Signs Period Temp Pulse Resp BP Sys/[place] Pulse Ox Last 24 Hr 98.1 F 71-72 17-18 127-149/59-94 Date of Session: 11/18/16 Chief Complaint:: Psyciatrist Discarge Note HPI: Patient addressing Alcohol Dependence comorobid with Nicotine Dependence, Opoid Dependence and Bipolar Disorder ROS: Asthma, DVT, HTN, Arthritis right knee, Obesity were medically managed Current Medications: Active Medications Generic Name Dose Route Start Last Admin Trade Name Freq PRN Reason Stop Dose Admin Acetaminophen 650 mg 11/10/16 13:15 11/16/16 12:29 Tylenol - PO 650 mg Q4H PRN Administration FEVER OR PAIN Al Hydroxide/Mg Hydroxide 30 ml 11/10/16 13:15 11/13/16 19:54 Mylanta Oral Suspension - PO 30 ml Q6H PRN Administration DYSPEPSIA Albuterol Sulfate 2 puff 11/10/16 13:16 11/16/16 00:18 Ventolin Hfa Inhaler - IH 2 puff Q4H PRN Administration ASTHMA Amlodipine Besylate 10 mg 11/11/16 10:00 11/17/16 10:37 Norvasc - PO 10 mg DAILY KOKO Administration Aripiprazole 10 mg 11/11/16 10:00 11/17/16 10:37 Abilify PO 10 mg DAILY KOKO Administration Aspirin 81 mg 11/11/16 10:00 11/17/16 10:37 Asa - PO 81 mg DAILY KOKO Administration Bismuth Subsalicylate 30 ml 11/14/16 13:13 11/15/16 04:11 Pepto-Bismol Liquid - PO 30 ml BID PRN Administration DIARRHEA Diphenhydramine HCl 50 mg 11/10/16 13:15 11/16/16 22:12 Benadryl - PO 50 mg HSMR1 PRN Administration FOR ITCHING Eucalyptus/Menthol/Phenol/Sorbitol 1 each 11/10/16 13:15 Cepastat Lozenge - MM Q4H PRN SORE THROAT Guaifenesin 10 ml 11/10/16 13:15 Robitussin Dm - PO Q6H PRN COUGH Lidocaine HCl 1 applic 11/12/16 08:02 11/14/16 10:36 Xylocaine 5% Top. Ointment TP 1 applic ONCE PRN Administration PAIN Lisinopril 10 mg 11/11/16 10:00 11/17/16 10:37 Prinivil PO 10 mg DAILY KOKO Administration Loperamide HCl 4 mg 11/10/16 13:15 11/13/16 21:39 Imodium - PO 4 mg Q6H PRN Administration DIARRHEA Magnesium Hydroxide 30 ml 11/10/16 13:15 Milk Of Magnesia - PO DAILY PRN CONSTIPATION Methadone HCl 80 mg/ Methadone 100 mg 11/15/16 06:00 11/18/16 05:47 HCl 20 mg PO 100 mg DAILY@0600 KOKO Administration Montelukast Sodium 10 mg 11/10/16 22:00 11/17/16 21:36 Singulair - PO 10 mg HS KOKO Administration Naproxen 500 mg 11/13/16 22:00 11/17/16 21:36 Naprosyn - PO 500 mg BID KOKO Administration Nicotine 14 mg 11/11/16 10:00 11/17/16 10:37 Nicoderm Patch - TD Not Given DAILY KOKO Nicotine Polacrilex 2 mg 11/10/16 13:15 Nicorette Gum - BUC Q2H PRN NICOTINE REPLACEMENT RX Multivit/Folic Acid/Iron 1 tab 11/11/16 10:00 11/17/16 10:37 Vitamins (Sjr) - PO 1 tab DAILY KOKO Administration Pseudoephedrine/Triprolidine 1 combo 11/10/16 13:15 Actifed - PO TID PRN NASAL CONGESTION Thiamine HCl 100 mg 11/10/16 22:00 11/17/16 21:36 Vitamin B1 - PO 100 mg HS KOKO Administration Trazodone HCl 100 mg 11/11/16 14:52 11/17/16 21:38 Desyrel - PO 100 mg HS PRN Administration INSOMNIA Current Side Effect: No Lab tests ordered: Yes Lab tests reviewed: Yes Provider note:: Patient has completed this program today. He has partially met his treatment goals and will continue to address his issues in outpatient treatment at [facility]. Told blog writer that from participation in this program, he has learned the importance of establising a sober suport network in order to maintain sobriety. He responded well to Abilify 10 mg po daily and Trazadone 100 mg po HS. Scripts for 30 days supply of these medications are electronically transmitted to [facility] [address] [place] [address]. He is stable for discharge today Total face to face time:: 25 Mental Status Exam - Mental Status Exam Alert and Oriented to: Time, Place, Person Cognitive Function: Fair Patient Appearance: Well Groomed Mood: Hopeful, Euthymic Affect: Appropriate Patient Behavior: Cooperative Speech Pattern: Clear Voice Loudness: Normal Thought Process: Intact Thought Disorder: Not Present Hallucinations: Denies Suicidal Ideation: Denies Homicidal Ideation: Denies Insight/Judgement: Fair Sleep: Fair Appetite: Good Muscle strength/Tone: Normal Gait/Station: Normal Psychiatric Treatment Plan - Problem List (1) Alcohol dependence with uncomplicated withdrawal Current Visit: No (2) Nicotine dependence Current Visit: No (3) Opioid dependence on agonist therapy Current Visit: No (4) Bipolar disorder Current Visit: Yes (5) Asthma Current Visit: Yes (6) COPD (chronic obstructive pulmonary disease) Current Visit: Yes (7) Saba cyst Current Visit: No (8) DVT (deep venous thrombosis) Current Visit: No (9) Obesity Current Visit: No (10) HTN (hypertension) Current Visit: No (11) Arthritis of right knee Current Visit: Yes Initial treatment plan: Patient is discharged today and referred back to [facility] for outpatient treatment
== END 2016-11-18 09:20 | disposition home or self-care (01) | DRG 772 ==
LOC: YASAS 11:23 → Y3W 11:28
PROVIDERS: ADMIT Psychiatry & Neurology Psychiatry; ATTEND Psychiatry & Neurology Psychiatry
PROC: HZ42ZZZ Group Counseling for Substance Abuse Treatment, Cognitive-Behavioral (ICD-10-PCS; principal; 2016-11-18)
DX: F11.23 Opioid dependence with withdrawal (principal); F10.230 Alcohol dependence with withdrawal, uncomplicated; F17.210 Nicotine dependence, cigarettes, uncomplicated; F31.9 Bipolar disorder, unspecified; J45.909 Unspecified asthma, uncomplicated; J44.9 Chronic obstructive pulmonary disease, unspecified; I10 Essential (primary) hypertension; M13.861 Other specified arthritis, right knee; Z86.718 Personal history of other venous thrombosis and embolism

== ENCOUNTER 2018-04-21 13:35 | Inpatient (IN) | payer OTHER ==
[2018-04-21 14:19] VITALS: BMI 31.8
--- NOTE | 2018-04-21 18:57 | HP ---
CIWA Score - CIWA Score Nausea/Vomitin-No Nausea/No Vomiting Muscle Tremors: 2 Anxiety: 3 Agitation: 4-Moderately Restless Paroxysmal Sweats: 3 Orientation: 0-Oriented Tacttile Disturbances: 2-Mild Itch/Numbness/Burn (numbness both feet) Auditory Disturbances: 0-None Visual Disturbances: 0-None Headache: 0-None Present CIWA-Ar Total Score: 14 Admission ROS S - HPI Chief Complaint: alcohol withdrawal symptoms Allergies/Adverse Reactions: Allergies Allergy/AdvReac Type Severity Reaction Status Date / Time shellfish derived Allergy Severe Rash Verified 04/21/18 18:14 No Known Drug Allergies Allergy Verified 04/21/18 18:14 History of Present Illness: 58 yo male with hx of alcohol and nicotine dependence is here seeking detox. PMHX: HTN, bipolar, COPD. Denies suicidal / homicidal ideation or hx of suicide attempt. Last detox two month ago at [facility]. Reports was seen last night at [facility] for ETOH blackout. MMTP at [facility] case #[id number] on methadone 20 mg, last medicated 04/20/18, dose pending verification. Reports no significant period of sobriety. Exam Limitations: No Limitations - Ebola screening Have you traveled outside of the country in the last 21 days: No Have you had contact with anyone from an Ebola affected area: No Have you been sick,other than usual withdrawal symptoms: No Do you have a fever: No - Review of Systems Constitutional: Diaphoresis, Unintentional Wgt. Loss EENT: reports: No Symptoms Reported Respiratory: reports: Wheezing Cardiac: reports: No Symptoms Reported GI: reports: Diarrhea, Poor Fluid Intake, Abdominal cramping : reports: Other (ocassional period of incontinence) Musculoskeletal: reports: Joint Pain (both knees OA) Integumentary: reports: No Symptoms Reported Neuro: reports: No Symptoms reported Endocrine: reports: Increased Thirst Hematology: reports: No Symptoms Reported Psychiatric: reports: Orientated x3, Anxious Other Systems: Reviewed and Negative Patient History - Patient Medical History Hx Anemia: No Hx Asthma: Yes (on albuterol inhealer) Hx Chronic Obstructive Pulmonary Disease (COPD): Yes Hx Cancer: No Hx Cardiac Disorders: No Hx Congestive Heart Failure: No Hx Hypertension: Yes (on med) Hx Hypercholesterolemia: No Hx Pacemaker: No HX Cerebrovascular Accident: No Hx Seizures: No Hx Dementia: No Hx Diabetes: No Hx Gastrointestinal Disorders: No Hx Liver Disease: No Hx Genitourinary Disorders: No Hx Sexually Transmitted Disorders: No Hx Renal Disease (ESRD): No Hx Thyroid Disease: No Hx Human Immunodeficiency Virus (HIV): No (last 2014 negative) Hx Hepatitis C: No Hx Depression: Yes Hx Suicide Attempt: No Hx Bipolar Disorder: Yes (bipolar depression) Hx Schizophrenia: No - Patient Surgical History Past Surgical History: Yes Hx Neurologic Surgery: No Hx Cataract Extraction: No Hx Cardiac Surgery: No Hx Lung Surgery: No Hx Breast Surgery: No Hx Breast Biopsy: No Hx Abdominal Surgery: No Hx Appendectomy: No Hx Cholecystectomy: No Hx Genitourinary Surgery: No Hx Section: No Hx Orthopedic Surgery: No Anesthesia Reaction: No - PPD History Previous Implant?: Yes Documented Results: Negative w/proof Date: 11/08/16 Results: 0 mm PPD to be Administered?: Yes - Smoking Cessation Smoking history: Current every day smoker Have you smoked in the past 12 months: Yes Aproximately how many cigarettes per day: 5 Hx Chewing Tobacco Use: No Initiated information on smoking cessation: Yes 'Breaking Loose' booklet given: 04/21/18 - Substance & Tx. History Hx Alcohol Use: Yes Hx Substance Use: Yes Substance Use Type: Alcohol Hx Substance Use Treatment: Yes ([facility] two months ago ) - Substances Abused Alcohol Route: Oral Frequency: Daily Amount used: BEER-9 (240z) Age of first use: 16 Date of Last Use: 04/21/18 Family Disease History - Family Disease History Family History: Denies Admission Physical Exam S - Vital Signs Vital Signs: Vital Signs - 24 hr 04/21/18 14:13 Temperature 98.6 F Pulse Rate 94 H Respiratory 17 Rate Blood Pressure 176/106 - Physical General Appearance: Yes: Disheveled, Moderate Distress, Sweating, Anxious, Other (malodorous) HEENTM: Yes: EOMI, Hearing grossly Normal, Normal ENT Inspection, Normocephalic , Normal Voice, MONTY, Pharynx Normal, Tm's normal, Other (poor dentition) Respiratory: Yes: Chest Non-Tender, No Respiratory Distress, No Accessory Muscle Use, Wheezing Neck: Yes: Within Normal Limits Breast: Yes: Breast Exam Deferred Cardiology: Yes: Regular Rhythm, Regular Rate Abdominal: Yes: Normal Bowel Sounds, Non Tender, Soft, Protuberent Genitourinary: Yes: Within Normal Limits Back: Yes: Normal Inspection Musculoskeletal: Yes: full range of Motion, Gait Steady, Pelvis Stable, Other ( cane for ambulation) Extremities: Yes: Within Normal Limits Neurological: Yes: program support clerk II-XII NML intact, Fully Oriented, Alert, Motor Strength 5/5, Depressed Affect Integumentary: Yes: Normal Color, Warm, Diaphoresis Lymphatic: Yes: Within Normal Limits - Diagnostic (1) Elevated blood pressure reading in office with diagnosis of hypertension Current Visit: Yes Status: Acute (2) Alcohol dependence with uncomplicated withdrawal Current Visit: Yes Status: Acute (3) Arthritis of right knee Current Visit: Yes Status: Chronic (4) COPD (chronic obstructive pulmonary disease) Current Visit: Yes Status: Chronic Qualifiers: COPD type: unspecified COPD Qualified Code(s): J44.9 - Chronic obstructive pulmonary disease, unspecified (5) HTN (hypertension) Current Visit: Yes Status: Chronic Qualifiers: Hypertension type: essential hypertension Qualified Code(s): I10 - Essential (primary) hypertension (6) Nicotine dependence Current Visit: Yes Status: Chronic Qualifiers: Nicotine product type: cigarettes (7) Opioid dependence on agonist therapy Current Visit: Yes Status: Chronic Comment: on MMTP 20mg, dose pending verification (8) Use of cane as ambulatory aid Current Visit: Yes Status: Chronic Cleared for Admission [facility] - Detox or Rehab [facility] Level of Care: Medically Managed Detox Regimen/Protocol: Librium [facility] Breath Alcohol Content Breath Alcohol Content: 0.043 Urine Drug Screen - Results Drug Screen Negative: No Urine Drug Screen Results: BZO-Benzodiazepines, MTD-Methadone
[2018-04-21] MEDS ORDERED: guaiFENesin/D-METHORPHAN HB 10 ML UNIT-DOSE CUPS PO PRN (19:01)
[2018-04-21] MEDS ORDERED: MAGNESIUM CITRATE 300 ML BOTTLE PO PRN (19:01)
[2018-04-21] MEDS ORDERED: P-EPHED 60MG/TRIPROLIDI 2.5MG TABLET PO PRN (19:01)
[2018-04-21] MEDS ORDERED: chlordiazePOXIDE HCL 25 MG CAPSULE PO ONE (19:01)
[2018-04-21] MEDS ORDERED: ACETAMINOPHEN 325 MG TABLET (FP) PO PRN (19:01)
[2018-04-21] MEDS ORDERED: IBUPROFEN 400 MG TABLET (FP) PO PRN (19:01)
[2018-04-21] MEDS ORDERED: LOPERAMIDE HCL 2 MG CAPSULE PO PRN (19:01)
[2018-04-21] MEDS ORDERED: MAGNESIUM HYDROX 2400MG/30ML ORAL SUSPENSION 30 ML CUP PO PRN (19:01)
[2018-04-21] MEDS ORDERED: chlordiazePOXIDE HCL 25 MG CAPSULE PO PRN (19:01)
[2018-04-21] MEDS ORDERED: MENTHOL/PHENOL 1 EACH UD MM PRN (19:01)
[2018-04-21] MEDS ORDERED: NICOTINE POLACRILEX 2 MG GUM BC PRN (19:01)
[2018-04-21] MEDS ORDERED: MAG HYDROX/AL HYDROX/SIMETH 30 ML UNIT-DOSE CUP PO PRN (19:01)
[2018-04-21] MEDS ORDERED: cloNIDine HCL 0.1 MG TABLET PO ONE (19:16)
[2018-04-21] MEDS ORDERED: ALBUTEROL SO4 2.5/IPRATROPIUM 0.5 INH SOL 3 ML VIAL.NEB. NEB PRN (19:16)
[2018-04-21] MEDS: amLODIPine BESYLATE 10 MG TABLET (FP) PO SCH (20:50)
[2018-04-21] MEDS: LISINOPRIL 10 MG TABLET (FP) PO SCH (20:50)
[2018-04-21] MEDS: ALBUTEROL SO4 8 GM HFA INHALER IH PRN (20:51)
[2018-04-21] MEDS ORDERED: MELATONIN 5 MG TABLETS PO PRN (22:00)
[2018-04-21] MEDS: MONTELUKAST NA 10 MG TABLET PO SCH (22:29)
[2018-04-21] MEDS: chlordiazePOXIDE HCL 25 MG CAPSULE PO SCH (22:29)
[2018-04-21] MEDS: THIAMINE HCL 100 MG TABLET (FP) PO SCH (22:29)
[2018-04-22 01:47] LABS: URINE APPEARANCE CLEAR; URINE BILIRUBIN NEGATIVE (<2.0 mg/dL); URINE COLOR STRAW; URINE GLUCOSE (UA) 2+ (NEGATIVE); URINE KETONE NEGATIVE (NEGATIVE); URINE LEUK ESTERASE NEGATIVE (NEGATIVE); URINE NITRITE NEGATIVE (NEGATIVE); URINE PROTEIN NEGATIVE (NEGATIVE); URINE UROBILINOGEN NEGATIVE mg/dL (0.2-1.0)
[2018-04-22] MEDS: chlordiazePOXIDE HCL 25 MG CAPSULE PO SCH ×4 (05:45→23:17)
[2018-04-22] MEDS ORDERED: METHADONE HCL 10 MG TABLET PO ONE (08:41)
--- NOTE | 2018-04-22 09:04 | CONSULT ---
[facility] Psychiatric Consult - Data Date of interview: 04/22/18 Admission source: [facility] Identifying data: This is a 58 years old male, single father of three, [facility], umbulates with cane, unemployede, on SSI, with history of Bipolar Disorder, historyn of psychiatric hospitalization, with hx of alcohol and nicotine dependence is reporting withdrawal symptoms and here seeking detox. Denies suicidal / homicidal ideation Substance Abuse History: - Smoking Cessation. Smoking history: Current every day smoker. Have you smoked in the past 12 months: Yes. Aproximately how many cigarettes per day: 5. Hx Chewing Tobacco Use: No. Initiated information on smoking cessation: Yes. 'Breaking Loose' booklet given: 04/21/18. - Substance & Tx. History. Hx Alcohol Use: Yes. Hx Substance Use: Yes. Substance Use Type : Alcohol. Hx Substance Use Treatment: Yes ([facility] two months ago ). - Substances Abused. Alcohol. Route: Oral. Frequency: Daily. Amount used: BEER-9 (240z). Age of first use: 16. Date of Last Use: 04/21/18 Medical History: Asthma COPD, HTN, Obesity, DVT, R.Knee arthritis, MMTP 20mg per day Psychiatric History: Patient reports history of Bipolar Disorder,reports most recent psychiatric admission on about more then 10 years ago, reports taking prior to admission: Abilify 10mg pqd,. Trazodone 100mg po qhs. Denies suicidal, homicidal history Physical/Sexual Abuse/Trauma History: Denies Additional Comment: Abilify 10mg pqd,. Trazodone 100mg po qhs Mental Status Exam - Mental Status Exam Alert and Oriented to: Person Cognitive Function: Fair Patient Appearance: Unkempt Mood: Apprehensive Affect: Mood Congruent Patient Behavior: Cooperative Speech Pattern: Appropriate Voice Loudness: Mildly Soft/Quiet Thought Process: Goal Oriented Thought Disorder: Being Controlled Hallucinations: Denies Suicidal Ideation: Denies Homicidal Ideation: Denies Sleep: Difficulty falling asleep Appetite: Weight gain Muscle strength/Tone: Mild Hypotonicity Gait/Station: Deferred Additional Comments: Abilify 10mg pqd,. Trazodone 100mg po qhs Psychiatric Findings - Problem List ([place] 1, 2,3) (1) Alcohol dependence with uncomplicated withdrawal Current Visit: Yes Status: Acute (2) Nicotine dependence Current Visit: Yes Status: Chronic Qualifiers: Nicotine product type: cigarettes (3) Opioid dependence on agonist therapy Current Visit: Yes Status: Chronic Comment: on MMTP 20mg, dose pending verification (4) Use of cane as ambulatory aid Current Visit: Yes Status: Chronic (5) Bipolar disorder Current Visit: No Status: Acute (6) Alcohol dependence Current Visit: No Status: Chronic
[2018-04-22] MEDS: ASPIRIN 81 MG CHEWABLE TABLETS PO SCH (09:43)
[2018-04-22] MEDS: LISINOPRIL 10 MG TABLET (FP) PO SCH (09:43)
[2018-04-22] MEDS: ARIPiprazole 10 MG TABLET PO SCH (09:44)
[2018-04-22] MEDS: PRENATAL VITAMINS W/ FOLIC ACID TABLET (FP) PO SCH (09:44)
[2018-04-22] MEDS: amLODIPine BESYLATE 10 MG TABLET (FP) PO SCH (09:44)
--- NOTE | 2018-04-22 10:14 | PN ---
S CIWA - CIWA Score Nausea/Vomitin Muscle Tremors: 3 Anxiety: 2 Agitation: 2 Paroxysmal Sweats: 3 Orientation: 0-Oriented Tacttile Disturbances: 2-Mild Itch/Numbness/Burn Auditory Disturbances: 0-None Visual Disturbances: 0-None Headache: 0-None Present CIWA-Ar Total Score: 14 S Progress Note (SOAP) Subjective: interrupted sleep, sweats , shakes , knee pains Objective: 04/22/18 10:10 Vital Signs Temperature 98.4 F 04/22/18 06:11 Pulse Rate 63 04/22/18 06:11 Respiratory Rate 18 04/22/18 06:11 Blood Pressure 154/85 04/22/18 06:11 O2 Sat by Pulse Oximetry (%) Laboratory Tests 04/21/18 23:25 Urine Color Straw Urine Appearance Clear Urine pH 7.0 Ur Specific [place] 1.004 Urine Protein Negative Urine Glucose (UA) 2+ H Urine Ketones Negative Urine Blood Negative Urine Nitrite Negative Urine Bilirubin Negative Urine Urobilinogen Negative Ur Leukocyte Esterase Negative pending labs pt aox3 in nad ambulating with a cane Assessment: 04/22/18 10:11 withdrawal sx's arthritis OTP asthma 04/22/18 10:12 04/22/18 10:14 Plan: cont detox increase fluids methadone 20mg /d f/up pending labs
[2018-04-22 10:43] LABS: CHLORIDE 100 mmol/L (98-107); POTASSIUM 3.7 mmol/L (3.5-5.1); SODIUM 139 mmol/L (136-145)
[2018-04-22 10:50] LABS: ALBUMIN 3.5 g/dl (3.4-5.0); ALK PHOS 82 U/L (45-117); ANION GAP 8 MMOL/L (8-16); BILIRUBIN,TOTAL 1.3 mg/dL (0.2-1.0); BLOOD UREA NITROGEN 10 mg/dL (7-18); CALCIUM 9.3 mg/dL (8.5-10.1); CO2 31 mmol/L (21-32); CREATININE 0.6 mg/dL (0.7-1.3); GLUCOSE,RANDOM 107 mg/dL (74-106); SGOT/AST 58 U/L (15-37); SGPT/ALT 60 U/L (12-78); TOT PROT 7.4 g/dl (6.4-8.2)
[2018-04-22 11:05] LABS: HEMATOCRIT 43.9 % (35.4-49); HEMOGLOBIN 14.3 GM/dL (11.7-16.9); MCH 26.5 pg (25.7-33.7); MCHC 32.6 g/dl (32.0-35.9); MEAN CELL VOLUME 81.4 fl (80-96); PLATELET COUNT 119 K/MM3 (134-434); RDW 14.4 % (11.9-15.9)
[2018-04-22] MEDS: NICOTINE 14 MG/24 HOURS TOPICAL PATCH TD SCH (11:51)
--- NOTE | 2018-04-22 12:32 | EKG ---
Test Reason : Blood Pressure : / mmHG Vent. Rate : 083 BPM Atrial Rate : 083 BPM P-R Int : 180 ms QRS Dur : 110 ms QT Int : 378 ms P-R-T Axes : 067 -51 060 degrees QTc Int : 444 ms POOR DATA QUALITY, INTERPRETATION MAY BE ADVERSELY AFFECTED NORMAL SINUS RHYTHM LEFT ANTERIOR FASCICULAR BLOCK INFERIOR INFARCT (CITED ON OR BEFORE 06-NOV-2016) ABNORMAL ECG WHEN COMPARED WITH ECG OF 07-NOV-2016 08:42, LEFT ANTERIOR FASCICULAR BLOCK IS NOW PRESENT Confirmed by ALISA LUCAS MD ([id number]) on 04/22/2018 12:32:22 PM Referred By: Confirmed By:ALISA LUCAS MD
[2018-04-22] MEDS: ALBUTEROL SO4 8 GM HFA INHALER IH PRN (15:44)
[2018-04-22] MEDS: MONTELUKAST NA 10 MG TABLET PO SCH (21:50)
[2018-04-22] MEDS: traZODone HCL 100 MG TABLET (FP) PO SCH (21:50)
[2018-04-22] MEDS: THIAMINE HCL 100 MG TABLET (FP) PO SCH (22:55)
[2018-04-23] MEDS: chlordiazePOXIDE HCL 25 MG CAPSULE PO SCH ×3 (05:55→17:41)
[2018-04-23] MEDS: METHADONE HCL 10 MG TABLET PO SCH (05:56)
[2018-04-23] MEDS: PRENATAL VITAMINS W/ FOLIC ACID TABLET (FP) PO SCH (10:08)
[2018-04-23] MEDS: ASPIRIN 81 MG CHEWABLE TABLETS PO SCH (10:08)
[2018-04-23] MEDS: ALBUTEROL SO4 8 GM HFA INHALER IH PRN ×2 (10:09→22:06)
[2018-04-23] MEDS: NICOTINE 14 MG/24 HOURS TOPICAL PATCH TD SCH (10:09)
[2018-04-23] MEDS: amLODIPine BESYLATE 10 MG TABLET (FP) PO SCH (10:09)
[2018-04-23] MEDS: LISINOPRIL 10 MG TABLET (FP) PO SCH (10:09)
[2018-04-23] MEDS: ARIPiprazole 10 MG TABLET PO SCH (10:09)
--- NOTE | 2018-04-23 19:45 | PN ---
S CIWA - CIWA Score Nausea/Vomitin-No Nausea/No Vomiting Muscle Tremors: 4-Moderate,w/Arms Extend Anxiety: 1-Mildly Anxious Agitation: 1-Slight > Activity Paroxysmal Sweats: No Perspiration Orientation: 0-Oriented Tacttile Disturbances: 0-None Auditory Disturbances: 0-None Visual Disturbances: 0-None Headache: 0-None Present CIWA-Ar Total Score: 6 [facility] Progress Note (SOAP) Subjective: States having shakes, but feels better. Denies nausea or sweating. Objective: A&O x 3. Hand tremors (+). Gait steady w/ use of cane. Unable to sit still for full assessment. Vital Signs 04/23/18 04/23/18 13:32 17:24 Temperature 98.1 F 98.2 F Pulse Rate 86 74 Respiratory 18 18 Rate Blood Pressure 154/76 127/76 Laboratory Tests 04/21/18 04/22/18 04/22/18 23:25 07:30 07:30 WBC 6.0 RBC 5.40 Hgb 14.3 Hct 43.9 MCV 81.4 MCH 26.5 MCHC 32.6 RDW 14.4 D Plt Count 119 L MPV 9.0 Sodium 139 Potassium 3.7 Chloride 100 Carbon Dioxide 31 Anion Gap 8 BUN 10 Creatinine 0.6 L Creat Clearance w eGFR > 60 Random Glucose 107 H Calcium 9.3 Total Bilirubin 1.3 H AST 58 H D ALT 60 D Alkaline Phosphatase 82 Total Protein 7.4 Albumin 3.5 Urine Color Straw Urine Appearance Clear Urine pH 7.0 Ur Specific [place] 1.004 Urine Protein Negative Urine Glucose (UA) 2+ H Urine Ketones Negative Urine Blood Negative Urine Nitrite Negative Urine Bilirubin Negative Urine Urobilinogen Negative Ur Leukocyte Esterase Negative RPR Titer 04/22/18 07:30 WBC RBC Hgb Hct MCV MCH MCHC RDW Plt Count MPV Sodium Potassium Chloride Carbon Dioxide Anion Gap BUN Creatinine Creat Clearance w eGFR Random Glucose Calcium Total Bilirubin AST ALT Alkaline Phosphatase Total Protein Albumin Urine Color Urine Appearance Urine pH Ur Specific [place] Urine Protein Urine Glucose (UA) Urine Ketones Urine Blood Urine Nitrite Urine Bilirubin Urine Urobilinogen Ur Leukocyte Esterase RPR Titer Nonreactive Labs reviewed. Assessment: Alcohol withdrawal symptoms. HTN Plan: Continue detox.
[2018-04-23] MEDS: THIAMINE HCL 100 MG TABLET (FP) PO SCH (22:06)
[2018-04-23] MEDS: traZODone HCL 100 MG TABLET (FP) PO SCH (22:06)
[2018-04-23] MEDS: chlordiazePOXIDE 5 MG CAPSULE PO SCH (22:06)
[2018-04-23] MEDS: MONTELUKAST NA 10 MG TABLET PO SCH (22:07)
[2018-04-24] MEDS: chlordiazePOXIDE 5 MG CAPSULE PO SCH ×3 (06:25→17:52)
[2018-04-24] MEDS: METHADONE HCL 10 MG TABLET PO SCH (06:25)
[2018-04-24] MEDS ORDERED: cloNIDine HCL 0.1 MG TABLET PO ONE (08:30)
[2018-04-24] MEDS: LISINOPRIL 10 MG TABLET (FP) PO SCH (09:28)
[2018-04-24] MEDS: ARIPiprazole 10 MG TABLET PO SCH (09:28)
[2018-04-24] MEDS: ASPIRIN 81 MG CHEWABLE TABLETS PO SCH (09:28)
[2018-04-24] MEDS: amLODIPine BESYLATE 10 MG TABLET (FP) PO SCH (09:28)
[2018-04-24] MEDS: PRENATAL VITAMINS W/ FOLIC ACID TABLET (FP) PO SCH (09:29)
[2018-04-24] MEDS: NICOTINE 14 MG/24 HOURS TOPICAL PATCH TD SCH (10:50)
[2018-04-24] MEDS ORDERED: guaiFENesin 200 MG/10 ML 10 ML UNIT-DOSE CUPS PO PRN ×2 (15:55→22:31)
[2018-04-24 17:23] VITALS: BP 127/84; PULSE 83; TEMP 98.2
--- NOTE | 2018-04-24 17:56 | PN ---
[facility] Progress Note (SOAP) Subjective: Patient stated has no withdrawal symptoms. C/o a cough. Requesting to go to rehab. Objective: A & O x 3. Gait steady. Mild nasal congestion. Cough is non-productive. Lungs CTA. Vital Signs 04/24/18 04/24/18 13:23 17:23 Temperature 97.7 F 98.2 F Pulse Rate 80 83 Respiratory 16 18 Rate Blood Pressure 133/78 127/84 Laboratory Tests 04/21/18 04/22/18 04/22/18 23:25 07:30 07:30 WBC 6.0 RBC 5.40 Hgb 14.3 Hct 43.9 MCV 81.4 MCH 26.5 MCHC 32.6 RDW 14.4 D Plt Count 119 L MPV 9.0 Sodium 139 Potassium 3.7 Chloride 100 Carbon Dioxide 31 Anion Gap 8 BUN 10 Creatinine 0.6 L Creat Clearance w eGFR > 60 Random Glucose 107 H Calcium 9.3 Total Bilirubin 1.3 H AST 58 H D ALT 60 D Alkaline Phosphatase 82 Total Protein 7.4 Albumin 3.5 Urine Color Straw Urine Appearance Clear Urine pH 7.0 Ur Specific [place] 1.004 Urine Protein Negative Urine Glucose (UA) 2+ H Urine Ketones Negative Urine Blood Negative Urine Nitrite Negative Urine Bilirubin Negative Urine Urobilinogen Negative Ur Leukocyte Esterase Negative RPR Titer 04/22/18 07:30 WBC RBC Hgb Hct MCV MCH MCHC RDW Plt Count MPV Sodium Potassium Chloride Carbon Dioxide Anion Gap BUN Creatinine Creat Clearance w eGFR Random Glucose Calcium Total Bilirubin AST ALT Alkaline Phosphatase Total Protein Albumin Urine Color Urine Appearance Urine pH Ur Specific [place] Urine Protein Urine Glucose (UA) Urine Ketones Urine Blood Urine Nitrite Urine Bilirubin Urine Urobilinogen Ur Leukocyte Esterase RPR Titer Nonreactive Labs reviewed. Assessment: Alcohol withdrawal subsiding. Cough. Plan: Discontinue detox. Transfer to rehab. Start on guafenisen cough syrup.
--- NOTE | 2018-04-24 18:47 | DS ---
[facility] Detox Discharge Summary Admission Date: 04/21/18 Discharge Date: 04/24/18 - History Present History: Alcohol Dependence, MMTP Additional Comments: Admitted for alcohol withdrawal symptoms. Hx opiate use disorder on methadone maintenance. Pertinent Past History: Hx alcohol use disorder. - Physical Exam Results Vital Signs: Vital Signs Temperature 98.2 F 04/24/18 17:23 Pulse Rate 83 04/24/18 17:23 Respiratory Rate 18 04/24/18 17:23 Blood Pressure 127/84 04/24/18 17:23 O2 Sat by Pulse Oximetry (%) Pertinent Admission Physical Exam Findings: Admitted for alcohol withdrawal symptoms. Laboratory Tests 04/21/18 04/22/18 04/22/18 23:25 07:30 07:30 WBC 6.0 RBC 5.40 Hgb 14.3 Hct 43.9 MCV 81.4 MCH 26.5 MCHC 32.6 RDW 14.4 D Plt Count 119 L MPV 9.0 Sodium 139 Potassium 3.7 Chloride 100 Carbon Dioxide 31 Anion Gap 8 BUN 10 Creatinine 0.6 L Creat Clearance w eGFR > 60 Random Glucose 107 H Calcium 9.3 Total Bilirubin 1.3 H AST 58 H D ALT 60 D Alkaline Phosphatase 82 Total Protein 7.4 Albumin 3.5 Urine Color Straw Urine Appearance Clear Urine pH 7.0 Ur Specific [place] 1.004 Urine Protein Negative Urine Glucose (UA) 2+ H Urine Ketones Negative Urine Blood Negative Urine Nitrite Negative Urine Bilirubin Negative Urine Urobilinogen Negative Ur Leukocyte Esterase Negative RPR Titer 04/22/18 07:30 WBC RBC Hgb Hct MCV MCH MCHC RDW Plt Count MPV Sodium Potassium Chloride Carbon Dioxide Anion Gap BUN Creatinine Creat Clearance w eGFR Random Glucose Calcium Total Bilirubin AST ALT Alkaline Phosphatase Total Protein Albumin Urine Color Urine Appearance Urine pH Ur Specific [place] Urine Protein Urine Glucose (UA) Urine Ketones Urine Blood Urine Nitrite Urine Bilirubin Urine Urobilinogen Ur Leukocyte Esterase RPR Titer Nonreactive Labs reviewed. - Treatment Hospital Course: Detox Protocol Followed, Detoxed Safely, Responded well, Discharged Condition Good (Alert and oriented x 3. Gait steady. No withdrawal symptoms noted.), Rehab Referral Accepted Patient has Accepted a Rehab Referral to: [facility] - Medication Discharge Medications: Ambulatory Orders Aspirin [ASA -] 81 mg PO DAILY 07/01/14 Albuterol Sulfate Inhaler - [Ventolin HFA Inhaler -] 2 inh PO Q4H PRN 30 Days inh 07/06/14 Amlodipine Besylate [Norvasc -] 10 mg PO DAILY #30 tablet 07/06/14 Montelukast Na [Singulair -] 10 mg PO DAILY 30 Days tablet 07/06/14 traZODone HCL [Desyrel -] 100 mg PO HS #30 tablet 11/07/16 Amlodipine Besylate [Norvasc -] 10 mg PO DAILY #30 tablet 11/18/16 Lisinopril [Prinivil] 10 mg PO DAILY #30 tablet 11/18/16 Aripiprazole [Abilify -] 10 mg PO DAILY #30 tablet 04/22/18 traZODone HCL [Desyrel -] 100 mg PO HS #30 tablet 04/22/18 - Diagnosis (1) Alcohol dependence with uncomplicated withdrawal Status: Resolved (2) HTN (hypertension) Status: Chronic Qualifiers: Hypertension type: essential hypertension Qualified Code(s): I10 - Essential (primary) hypertension (3) Opioid dependence on agonist therapy Status: Chronic (4) Use of cane as ambulatory aid Status: Chronic - AMA Did Patient Leave Against Medical Advice: No
[2018-04-24] MEDS ORDERED: chlordiazePOXIDE HCL 10 MG CAPSULE PO SCH (23:00)
== END 2018-04-24 18:49 | disposition other institution (70) | DRG 773 ==
LOC: YASAS 13:35 → Y6N 18:43
PROC: HZ2ZZZZ Detoxification Services for Substance Abuse Treatment (ICD-10-PCS; principal; 2018-04-21)
DX: F10.230 Alcohol dependence with withdrawal, uncomplicated (principal); F11.20 Opioid dependence, uncomplicated; F17.210 Nicotine dependence, cigarettes, uncomplicated; F31.9 Bipolar disorder, unspecified; I10 Essential (primary) hypertension; J44.9 Chronic obstructive pulmonary disease, unspecified; J45.909 Unspecified asthma, uncomplicated; M17.11 Unilateral primary osteoarthritis, right knee; E66.9 Obesity, unspecified; Z68.31 Body mass index [BMI] 31.0-31.9, adult; R26.89 Other abnormalities of gait and mobility; Z99.89 Dependence on other enabling machines and devices; Z86.718 Personal history of other venous thrombosis and embolism; Z91.013 Allergy to seafood
CPT/HCPCS: 36415; 80053; 81003; 85027; 86593; 93005; 93010; J0735

== ENCOUNTER 2018-04-24 18:52 | Inpatient (IN) | payer OTHER ==
[2018-04-24] MEDS ORDERED: NICOTINE POLACRILEX 2 MG GUM BUC PRN (20:11)
[2018-04-24] MEDS ORDERED: IBUPROFEN 400 MG TABLET (FP) PO PRN (20:11)
[2018-04-24] MEDS ORDERED: MAGNESIUM CITRATE 300 ML BOTTLE PO PRN (20:11)
[2018-04-24] MEDS ORDERED: P-EPHED 60MG/TRIPROLIDI 2.5MG TABLET PO PRN (20:11)
[2018-04-24] MEDS ORDERED: ACETAMINOPHEN 325 MG TABLET (FP) PO PRN (20:11)
[2018-04-24] MEDS ORDERED: LOPERAMIDE HCL 2 MG CAPSULE PO PRN (20:11)
[2018-04-24] MEDS ORDERED: guaiFENesin/D-METHORPHAN HB 10 ML UNIT-DOSE CUPS PO PRN (20:11)
[2018-04-24] MEDS ORDERED: MAGNESIUM HYDROX 2400MG/30ML ORAL SUSPENSION 30 ML CUP PO PRN (20:11)
[2018-04-24] MEDS ORDERED: MENTHOL/PHENOL 1 EACH UD MM PRN (20:11)
[2018-04-24] MEDS ORDERED: MAG HYDROX/AL HYDROX/SIMETH 30 ML UNIT-DOSE CUP PO PRN (20:11)
[2018-04-24 21:01] VITALS: BMI 31.8
[2018-04-24] MEDS: hydrOXYzine PAMOATE 50 MG CAPSULE (FP) PO PRN (21:41)
[2018-04-24] MEDS: THIAMINE HCL 100 MG TABLET (FP) PO SCH (21:41)
[2018-04-24] MEDS: MELATONIN 5 MG TABLETS PO PRN (21:41)
[2018-04-24] MEDS: MONTELUKAST NA 10 MG TABLET PO SCH (22:35)
[2018-04-25] MEDS: METHADONE HCL 10 MG TABLET PO SCH (06:47)
[2018-04-25] MEDS: guaiFENesin 200 MG/10 ML 10 ML UNIT-DOSE CUPS PO PRN ×2 (06:49→21:59)
[2018-04-25] MEDS: LISINOPRIL 10 MG TABLET (FP) PO SCH (09:52)
[2018-04-25] MEDS: ASPIRIN 81 MG CHEWABLE TABLETS PO SCH (09:52)
[2018-04-25] MEDS: amLODIPine BESYLATE 10 MG TABLET (FP) PO SCH (09:52)
[2018-04-25] MEDS: PRENATAL VITAMINS W/ FOLIC ACID TABLET (FP) PO SCH (09:53)
[2018-04-25] MEDS: NICOTINE 14 MG/24 HOURS TOPICAL PATCH TD SCH (09:53)
[2018-04-25] MEDS: hydrOXYzine PAMOATE 50 MG CAPSULE (FP) PO PRN (09:54)
--- NOTE | 2018-04-25 13:40 | PN ---
[facility] Progress Note Note: Informed by RN that pt had an unwitnessed fall in the a.m in the shower room. On assessment, pt A & O x 3, ambulates with a cane and c/o pain of 6/10 to the posterior aspect of neck and L upper shoulder area. tender to neck area. Pt denies LOC at the time of fall. No hematoma nor obvious deformity noted. Fall protocol 1 initiated, pt will be sent to ED for further eval per policy Report given to MD Lee @ [facility].
--- NOTE | 2018-04-25 20:25 | PN ---
[facility] Progress Note Note: Pt returned from the ED, A & O x 3 and ambulating with his cane. Pt stated his radiology studies were not remarkable, was instructed to use tylenol prn if soreness returns
[2018-04-25] MEDS: MONTELUKAST NA 10 MG TABLET PO SCH (22:04)
[2018-04-25] MEDS: THIAMINE HCL 100 MG TABLET (FP) PO SCH (22:04)
[2018-04-26] MEDS: METHADONE HCL 10 MG TABLET PO SCH (06:23)
[2018-04-26] MEDS: ASPIRIN 81 MG CHEWABLE TABLETS PO SCH (09:54)
[2018-04-26] MEDS: PRENATAL VITAMINS W/ FOLIC ACID TABLET (FP) PO SCH (09:54)
[2018-04-26] MEDS: LISINOPRIL 10 MG TABLET (FP) PO SCH (09:54)
[2018-04-26] MEDS: NICOTINE 14 MG/24 HOURS TOPICAL PATCH TD SCH (09:54)
[2018-04-26] MEDS: amLODIPine BESYLATE 10 MG TABLET (FP) PO SCH (09:54)
[2018-04-26 11:08] LABS: INR 1.07 (0.83-1.09); PROTHROMBIN TIME (PATIENT) 12.1 SEC (9.7-13.0)
[2018-04-26 11:11] LABS: ACTIVATED PTT 27.5 SECONDS (25.2-36.5)
[2018-04-26] MEDS: guaiFENesin 200 MG/10 ML 10 ML UNIT-DOSE CUPS PO PRN (14:35)
[2018-04-26] MEDS: MONTELUKAST NA 10 MG TABLET PO SCH (21:35)
[2018-04-26] MEDS: THIAMINE HCL 100 MG TABLET (FP) PO SCH (21:35)
[2018-04-26] MEDS: MELATONIN 5 MG TABLETS PO PRN (21:35)
[2018-04-27] MEDS: METHADONE HCL 10 MG TABLET PO SCH (06:20)
--- NOTE | 2018-04-27 09:41 | HP ---
Psychiatrist Admission - Data Date of interview: 04/27/18 Admission source: 6N Identifying data: This is the second [facility] admission for this 58 years old single male, father of 2 living sons, unemployed on SSI, homeless Medical History: Significant for bronchial COPD, hypertension, obesity, arthritis right knee, Saba's cyst right knee and history of DVT right leg. Patient attends [facility] and he is on methadone 20 mg po daily. Smokes 5 cigarettes daily Psychiatric History: Patient reports that he was diagnosed with Bipolar Disorder approximately 7 years ago. Reports history od 4 previous psychiatric hospitalizations at [facility] and [facility] . Most recent one was at [facility] approximatly 3 years ago for suicidal attempt by cutting his left forearm. Reports that he was getting OPD care at [facility] and he was prescribed Abilify 10 mg po daily and Trazadone 100 mg po HS. He saw Dr Zamarripa on 04/22/18 while in detox and was continued on his medications. Reports history of suicidal attempt by cutting his wrist and taking pills. At present, reports feeling depressed and sleeping poorly Physical/Sexual Abuse/Trauma History: Denies history of emotional, physical or sexual aswell as DV relationship. No service Additional Comment: Reports history of one previous arrest on charges of attempted murder. He served one year in [facility] Vital Signs: Vital Signs - 24 hr 04/26/18 04/26/18 04/26/18 10:06 11:20 11:21 Temperature 98 F 98 F Pulse Rate 87 84 84 Respiratory 18 18 Rate Blood Pressure 149/79 154/88 154/88 04/27/18 04/27/18 04/27/18 00:30 03:30 06:58 Temperature 98.2 F Pulse Rate 84 Respiratory 18 20 18 Rate Blood Pressure 161/92 Allergies/Adverse Reactions: Allergies Allergy/AdvReac Type Severity Reaction Status Date / Time shellfish derived Allergy Severe Rash Verified 04/21/18 18:14 No Known Drug Allergies Allergy Verified 04/21/18 18:14 Date of last physical exam: 04/24/18 Concur with the findings of this exam: Yes - Substance Abuse/Tx History Hx Alcohol Use: Yes Hx Substance Use: No Substance Use Type: Alcohol (Started drinking alcohol at age 16, consumes 9x 24oz of beer daily. Last drank on 9/4/18) Hx Substance Use Treatment: Yes (3 previous inpt detox & one inpt rehab admissions @ [facility]) Mental Status Exam - Mental Status Exam Alert and Oriented to: Time, Place, Person Cognitive Function: Fair Patient Appearance: Well Groomed Mood: Depressed Affect: Appropriate Patient Behavior: Cooperative Speech Pattern: Clear Voice Loudness: Normal Thought Process: Intact, Goal Oriented Thought Disorder: Not Present Hallucinations: Denies Suicidal Ideation: Denies Homicidal Ideation: Denies Insight/Judgement: Fair Sleep: Poorly Appetite: Good Muscle strength/Tone: Normal Gait/Station: Other (use a cane as ambulatory aid) Psychiatric Findings - Problem List ([place] 1, 2,3) (1) Alcohol dependence Current Visit: No Status: Acute (2) Opioid dependence on agonist therapy Current Visit: No Status: Chronic Comment: on MMTP 20mg, dose pending verification (3) Nicotine dependence Current Visit: No Status: Chronic Qualifiers: Nicotine product type: cigarettes (4) Bipolar disorder Current Visit: No Status: Acute (5) Alcohol-induced mood disorder Current Visit: Yes Status: Acute (6) Alcohol-induced sleep disorder Current Visit: Yes Status: Acute (7) Asthma Current Visit: No Status: Chronic (8) Saba cyst Current Visit: No Status: Chronic (9) DVT (deep venous thrombosis) Current Visit: No Status: Acute (10) Elevated blood pressure reading in office with diagnosis of hypertension Current Visit: No Status: Acute (11) Obesity Current Visit: No Status: Chronic - Initial Treatment Plan Initial Treatment Plan: 1) Continue Abilify 10 mg po daily and Trazadone 100 mg po HS. 2) Monitor progress
[2018-04-27] MEDS: PRENATAL VITAMINS W/ FOLIC ACID TABLET (FP) PO SCH (10:00)
[2018-04-27] MEDS: amLODIPine BESYLATE 10 MG TABLET (FP) PO SCH (10:00)
[2018-04-27] MEDS: ASPIRIN 81 MG CHEWABLE TABLETS PO SCH (10:00)
[2018-04-27] MEDS: NICOTINE 14 MG/24 HOURS TOPICAL PATCH TD SCH (10:00)
[2018-04-27] MEDS: LISINOPRIL 10 MG TABLET (FP) PO SCH (10:00)
[2018-04-27] MEDS: ALBUTEROL SO4 8 GM HFA INHALER IH PRN ×2 (10:02→22:00)
[2018-04-27] MEDS: ARIPiprazole 10 MG TABLET PO SCH (10:24)
[2018-04-27] MEDS ORDERED: PT OWN MED DRAWER 7, Y5N ONE ×3 (20:42→22:03)
[2018-04-27] MEDS: guaiFENesin 200 MG/10 ML 10 ML UNIT-DOSE CUPS PO PRN (22:01)
[2018-04-27] MEDS: MONTELUKAST NA 10 MG TABLET PO SCH (22:02)
[2018-04-27] MEDS: MELATONIN 5 MG TABLETS PO PRN (22:02)
[2018-04-27] MEDS: THIAMINE HCL 100 MG TABLET (FP) PO SCH (22:04)
[2018-04-27] MEDS: traZODone HCL 100 MG TABLET (FP) PO SCH (22:04)
[2018-04-28] MEDS: METHADONE HCL 10 MG TABLET PO SCH (06:24)
[2018-04-28] MEDS: ARIPiprazole 10 MG TABLET PO SCH (10:21)
[2018-04-28] MEDS: LISINOPRIL 10 MG TABLET (FP) PO SCH (10:21)
[2018-04-28] MEDS: ASPIRIN 81 MG CHEWABLE TABLETS PO SCH (10:21)
[2018-04-28] MEDS: NICOTINE 14 MG/24 HOURS TOPICAL PATCH TD SCH (10:21)
[2018-04-28] MEDS: amLODIPine BESYLATE 10 MG TABLET (FP) PO SCH (10:21)
[2018-04-28] MEDS: PRENATAL VITAMINS W/ FOLIC ACID TABLET (FP) PO SCH (10:22)
[2018-04-28] MEDS: traZODone HCL 100 MG TABLET (FP) PO SCH (21:55)
[2018-04-28] MEDS: MONTELUKAST NA 10 MG TABLET PO SCH (21:55)
[2018-04-28] MEDS: THIAMINE HCL 100 MG TABLET (FP) PO SCH (21:55)
[2018-04-29] MEDS: METHADONE HCL 10 MG TABLET PO SCH (06:12)
[2018-04-29] MEDS: ASPIRIN 81 MG CHEWABLE TABLETS PO SCH (10:03)
[2018-04-29] MEDS: ARIPiprazole 10 MG TABLET PO SCH (10:03)
[2018-04-29] MEDS: PRENATAL VITAMINS W/ FOLIC ACID TABLET (FP) PO SCH (10:04)
[2018-04-29] MEDS: amLODIPine BESYLATE 10 MG TABLET (FP) PO SCH (10:04)
[2018-04-29] MEDS: LISINOPRIL 10 MG TABLET (FP) PO SCH (10:04)
[2018-04-29] MEDS: NICOTINE 14 MG/24 HOURS TOPICAL PATCH TD SCH (10:05)
[2018-04-29] MEDS: traZODone HCL 100 MG TABLET (FP) PO SCH (22:28)
[2018-04-29] MEDS: MONTELUKAST NA 10 MG TABLET PO SCH (22:28)
[2018-04-29] MEDS: THIAMINE HCL 100 MG TABLET (FP) PO SCH (22:28)
[2018-04-30] MEDS: METHADONE HCL 10 MG TABLET PO SCH (06:15)
[2018-04-30] MEDS: LISINOPRIL 10 MG TABLET (FP) PO SCH (10:08)
[2018-04-30] MEDS: ASPIRIN 81 MG CHEWABLE TABLETS PO SCH (10:08)
[2018-04-30] MEDS: amLODIPine BESYLATE 10 MG TABLET (FP) PO SCH (10:08)
[2018-04-30] MEDS: PRENATAL VITAMINS W/ FOLIC ACID TABLET (FP) PO SCH (10:08)
[2018-04-30] MEDS: NICOTINE 14 MG/24 HOURS TOPICAL PATCH TD SCH (10:08)
[2018-04-30] MEDS: ARIPiprazole 10 MG TABLET PO SCH ×2 (10:10→21:25)
[2018-04-30] MEDS: traZODone HCL 100 MG TABLET (FP) PO SCH (21:25)
[2018-04-30] MEDS: MONTELUKAST NA 10 MG TABLET PO SCH (21:25)
[2018-04-30] MEDS: THIAMINE HCL 100 MG TABLET (FP) PO SCH (21:25)
[2018-05-01] MEDS: METHADONE HCL 10 MG TABLET PO SCH (06:11)
[2018-05-01 06:52] VITALS: TEMP 97.4
[2018-05-01] MEDS ORDERED: PT OWN MED DRAWER 7, Y5N ONE (09:11)
[2018-05-01] MEDS: amLODIPine BESYLATE 10 MG TABLET (FP) PO SCH (10:06)
[2018-05-01] MEDS: ASPIRIN 81 MG CHEWABLE TABLETS PO SCH (10:06)
[2018-05-01] MEDS: LISINOPRIL 10 MG TABLET (FP) PO SCH (10:06)
[2018-05-01] MEDS: PRENATAL VITAMINS W/ FOLIC ACID TABLET (FP) PO SCH (10:07)
[2018-05-01] MEDS: NICOTINE 14 MG/24 HOURS TOPICAL PATCH TD SCH (10:07)
[2018-05-01] MEDS: MONTELUKAST NA 10 MG TABLET PO SCH (21:50)
[2018-05-01] MEDS: ARIPiprazole 10 MG TABLET PO SCH (21:50)
[2018-05-01] MEDS: traZODone HCL 100 MG TABLET (FP) PO SCH (21:50)
[2018-05-01] MEDS: MELATONIN 5 MG TABLETS PO PRN (21:50)
[2018-05-01] MEDS: THIAMINE HCL 100 MG TABLET (FP) PO SCH (21:50)
[2018-05-02] MEDS ORDERED: METHADONE HCL 10 MG TABLET PO SCH (06:00)
[2018-05-02 07:06] VITALS: BP 148/91; PULSE 83
[2018-05-02] MEDS: LISINOPRIL 10 MG TABLET (FP) PO SCH (09:24)
[2018-05-02] MEDS: NICOTINE 14 MG/24 HOURS TOPICAL PATCH TD SCH (09:24)
[2018-05-02] MEDS: PRENATAL VITAMINS W/ FOLIC ACID TABLET (FP) PO SCH (09:24)
[2018-05-02] MEDS: amLODIPine BESYLATE 10 MG TABLET (FP) PO SCH (09:24)
[2018-05-02] MEDS: ASPIRIN 81 MG CHEWABLE TABLETS PO SCH (09:24)
--- NOTE | 2018-05-02 13:03 | PN ---
[facility] Progress Note Note: Called by nursing staff to report that patient wants to leave the program ahead of his regular discharge date. He is reportedly stable to be discharge according to nursing staff and will go back to address his issues at [facility]. Medications( Abilify, Trazadone) are electronically transferred to [facility] at [address] [place] [address]
== END 2018-05-02 10:35 | disposition home or self-care (01) | DRG 772 ==
LOC: YASAS 18:52 → Y3W 19:23
PROVIDERS: ADMIT Psychiatry & Neurology Psychiatry; ATTEND Psychiatry & Neurology Psychiatry
PROC: HZ42ZZZ Group Counseling for Substance Abuse Treatment, Cognitive-Behavioral (ICD-10-PCS; principal; 2018-04-24)
DX: F10.24 Alcohol dependence with alcohol-induced mood disorder (principal); F11.20 Opioid dependence, uncomplicated; F10.282 Alcohol dependence with alcohol-induced sleep disorder; F31.9 Bipolar disorder, unspecified; I10 Essential (primary) hypertension; J45.909 Unspecified asthma, uncomplicated; M71.21 Synovial cyst of popliteal space [Baker], right knee; Z86.718 Personal history of other venous thrombosis and embolism; Z79.82 Long term (current) use of aspirin; M17.11 Unilateral primary osteoarthritis, right knee; E66.9 Obesity, unspecified; Z68.31 Body mass index [BMI] 31.0-31.9, adult; Z91.5 Personal history of self-harm; Z91.013 Allergy to seafood
CPT/HCPCS: 36415; 82962; 85610; 85730

== ENCOUNTER 2018-05-25 12:20 | Inpatient (IN) | payer OTHER ==
[2018-05-25 14:30] VITALS: BMI 32.9
--- NOTE | 2018-05-25 18:53 | HP ---
CIWA Score - CIWA Score Nausea/Vomitin-No Nausea/No Vomiting Muscle Tremors: 4-Moderate,w/Arms Extend Anxiety: 3 Agitation: 4-Moderately Restless Paroxysmal Sweats: 1-Minimal Palms Moist Orientation: 0-Oriented Tacttile Disturbances: 0-None Auditory Disturbances: 0-None Visual Disturbances: 0-None Headache: 0-None Present CIWA-Ar Total Score: 12 Admission ROS [facility] - HPI Chief Complaint: Here for alcohol withdrawal. Allergies/Adverse Reactions: Allergies Allergy/AdvReac Type Severity Reaction Status Date / Time shellfish derived Allergy Severe Rash Verified 05/25/18 17:43 No Known Drug Allergies Allergy Verified 05/25/18 17:43 History of Present Illness: Returns today for c/o alcohol withdrawal and requesting detox. States "I need to be clean to get a place to live". Alcohol use disorder since age 13. States relapse 1 week after leaving rehab. Last drink about 3 pm. Drank 4 - 24 oz cans beer. Current ADALBERTO = 0.103 was 0.210 Hx: Blackouts. Denies seizures. Nicotine use disorder since age 12. Heroin use disorder since age 23. Currently on [facility] ID# [id number] on Methadone 20 mg, last medicated 05/24/18, dose pending verification. Hx: HTN, COPD Search Terms: Cas Salcedo, 1960 Search Date: 05/25/2018 06:50:41 PM The Drug Utilization Report below displays all of the controlled substance prescriptions, if any, that your patient has filled in the last twelve months. The information displayed on this report is compiled from pharmacy submissions to the Department, and accurately reflects the information as submitted by the pharmacies. This report was requested by: Gina Raymond | Reference #: [id number] Others' Prescriptions Patient Name: Cas Salcedo Date: 1960 Address: [address] [place] [address] Sex: Male Rx Written Rx Dispensed Drug Quantity Days Supply Prescriber Name 09/22/2017 09/22/2017 chlordiazepoxide 25 mg capsule 8 2 Braydon Jara ( MEGHAN) Exam Limitations: No Limitations - Ebola screening Have you traveled outside of the country in the last 21 days: No Have you had contact with anyone from an Ebola affected area: No Have you been sick,other than usual withdrawal symptoms: No Do you have a fever: No - Review of Systems Constitutional: Chills, Diaphoresis, Changes in sleep (Difficulty staying asleep.), Other (Denies Hx. STD's.) EENT: reports: Blurred Vision (Wears glasses), Nose Congestion, Dental Problems (Missing and broken teeth. Chews and swallows ok.) Respiratory: reports: No Symptoms reported, Other (COPD) Cardiac: reports: No Symptoms Reported, Other (Hx: HTN) GI: reports: No Symptoms Reported : reports: No Symptoms Reported Musculoskeletal: reports: Joint Pain (Lino knee pain - hx arthritis. Uses a cane) Integumentary: reports: No Symptoms Reported Neuro: reports: Tremors, Unsteady Gait (r/t arthritis. Uses a cane) Endocrine: reports: No Symptoms Reported Hematology: reports: No Symptoms Reported Psychiatric: reports: Orientated x3, Agitated, Anxious, Depressed (Bi-polar. On abilify. Denies thoughts of harming self or others.) Patient History - Patient Medical History Hx Anemia: No Hx Asthma: Yes Hx Chronic Obstructive Pulmonary Disease (COPD): Yes Hx Cancer: No Hx Cardiac Disorders: No Hx Congestive Heart Failure: No Hx Hypertension: Yes (non compliant.) Hx Hypercholesterolemia: No Hx Pacemaker: No HX Cerebrovascular Accident: No Hx Seizures: No Hx Dementia: No Hx Diabetes: No Hx Gastrointestinal Disorders: No Hx Liver Disease: No Hx Genitourinary Disorders: No Hx Sexually Transmitted Disorders: No Hx Renal Disease (ESRD): No Hx Thyroid Disease: No Hx Human Immunodeficiency Virus (HIV): No (last 2014 negative) Hx Hepatitis C: No Hx Depression: Yes Hx Suicide Attempt: No Hx Bipolar Disorder: Yes (bipolar depression) Hx Schizophrenia: No - Patient Surgical History Past Surgical History: No Hx Neurologic Surgery: No Hx Cataract Extraction: No Hx Cardiac Surgery: No Hx Lung Surgery: No Hx Breast Surgery: No Hx Breast Biopsy: No Hx Abdominal Surgery: No Hx Appendectomy: No Hx Cholecystectomy: No Hx Genitourinary Surgery: No Hx Section: No Hx Orthopedic Surgery: No Anesthesia Reaction: No - PPD History Previous Implant?: Yes Documented Results: Negative w/proof Implanted On Prior [facility] Admission?: Yes Date: 04/23/18 Results: 0 mm PPD to be Administered?: No - Smoking Cessation Smoking history: Current every day smoker Have you smoked in the past 12 months: Yes Aproximately how many cigarettes per day: 2 Hx Chewing Tobacco Use: No Initiated information on smoking cessation: Yes 'Breaking Loose' booklet given: 05/25/18 - Substance & Tx. History Hx Alcohol Use: Yes Hx Substance Use: Yes Substance Use Type: Alcohol, Heroin Hx Substance Use Treatment: Yes (detox, rehab; currently on a MMTP) - Substances Abused Alcohol Route: Oral Frequency: Daily Amount used: 10 cans beer/ 1 pint 12 Age of first use: 13 Date of Last Use: 05/25/18 Admission Physical Exam S - Vital Signs Vital Signs: Vital Signs - 24 hr 05/25/18 14:25 Temperature 96.8 F L Pulse Rate 93 H Respiratory 19 Rate Blood Pressure 151/78 - Physical General Appearance: Yes: Moderate Distress, Alcohol on Breath (BAC0.210), Sweating (MIld perspiration on forehead) HEENTM: Yes: EOMI, Hearing grossly Normal, Normal Voice, MONTY, Other (Erythema bilateral sclerra. Anicteric.) Respiratory: Yes: Lungs Clear, Normal Breath Sounds, No Respiratory Distress Neck: Yes: No masses,lesions,Nodules, Supple Breast: Yes: Breast Exam Deferred Cardiology: Yes: Regular Rhythm, Regular Rate, S1, S2, Murmur Abdominal: Yes: Non Tender, Soft, Increased Bowel Sounds, Protuberent ( Increased abdominal adiposity) Genitourinary: Yes: Within Normal Limits Back: Yes: Normal Inspection Musculoskeletal: Yes: full range of Motion Extremities: Yes: Normal Capillary Refill, Non-Tender, Tremors (Of hands when extended), Pedal Edema (Bilateral (R)>(L). Pedal pulses (+).) Neurological: Yes: assistant customer service manager II-XII NML intact, Fully Oriented, Alert, Motor Strength 5/5, Normal Response, Finger to Nose (Slow and slightly off center) Integumentary: Yes: Normal Color, Dry (Dry skin, w/ decreased turgor.), Warm, Moist (Mild perspiration on forehead) Lymphatic: Yes: Within Normal Limits - Diagnostic (1) Murmur, cardiac Current Visit: Yes Status: Acute (2) Osteoarthritis of knees, bilateral Current Visit: Yes Status: Acute Qualifiers: Osteoarthritis type: unspecified Qualified Code(s): M17.0 - Bilateral primary osteoarthritis of knee (3) COPD (chronic obstructive pulmonary disease) Current Visit: Yes Status: Chronic Qualifiers: COPD type: unspecified COPD Qualified Code(s): J44.9 - Chronic obstructive pulmonary disease, unspecified (4) HTN (hypertension) Current Visit: Yes Status: Chronic Qualifiers: Hypertension type: essential hypertension Qualified Code(s): I10 - Essential (primary) hypertension (5) Nicotine dependence Current Visit: Yes Status: Chronic Qualifiers: Nicotine product type: cigarettes Substance use status: uncomplicated Qualified Code(s): F17.210 - Nicotine dependence, cigarettes, uncomplicated (6) Obesity Current Visit: Yes Status: Chronic Qualifiers: Obesity type: due to excess calories Obesity classification: adult class 1 (BMI 30 - 34.9) Serious obesity comorbidity presence: unspecified whether serious comorbidity present Body mass index: BMI 32.0-32.9 Qualified Code(s) : E66.09 - Other obesity due to excess calories; Z68.32 - Body mass index (BMI) 32.0-32.9, adult (7) Opioid dependence on agonist therapy Current Visit: Yes Status: Chronic Comment: on MMTP 20mg, dose pending verification (8) Use of cane as ambulatory aid Current Visit: Yes Status: Chronic (9) Alcohol dependence with uncomplicated withdrawal Current Visit: Yes Status: Acute Cleared for Admission S - Detox or Rehab [facility] Level of Care: Medically Managed Detox Regimen/Protocol: Librium [facility] Breath Alcohol Content Breath Alcohol Content: 0.210 Urine Drug Screen - Results Drug Screen Negative: No Urine Drug Screen Results: BZO-Benzodiazepines, MTD-Methadone
[2018-05-25] MEDS ORDERED: LOPERAMIDE HCL 2 MG CAPSULE PO PRN (19:24)
[2018-05-25] MEDS ORDERED: MAGNESIUM CITRATE 300 ML BOTTLE PO PRN (19:24)
[2018-05-25] MEDS ORDERED: IBUPROFEN 400 MG TABLET (FP) PO PRN (19:24)
[2018-05-25] MEDS ORDERED: ACETAMINOPHEN 325 MG TABLET (FP) PO PRN (19:24)
[2018-05-25] MEDS ORDERED: P-EPHED 60MG/TRIPROLIDI 2.5MG TABLET PO PRN (19:24)
[2018-05-25] MEDS ORDERED: MAG HYDROX/AL HYDROX/SIMETH 30 ML UNIT-DOSE CUP PO PRN (19:24)
[2018-05-25] MEDS ORDERED: chlordiazePOXIDE HCL 25 MG CAPSULE PO ONE (19:24)
[2018-05-25] MEDS ORDERED: MENTHOL/PHENOL 1 EACH UD MM PRN (19:24)
[2018-05-25] MEDS ORDERED: MAGNESIUM HYDROX 2400MG/30ML ORAL SUSPENSION 30 ML CUP PO PRN (19:24)
[2018-05-25] MEDS ORDERED: cloNIDine HCL 0.1 MG TABLET PO ONE (20:44)
--- NOTE | 2018-05-25 20:46 | PN ---
[facility] Progress Note Note: asymptomatic elevated BP BP 190/100, repeat 173/102 clonidine 0.1 mg stat increase PO fluids continue to monitor
[2018-05-25] MEDS ORDERED: ALBUTEROL SO4 8 GM HFA INHALER IH ONE (20:52)
[2018-05-25] MEDS ORDERED: ALBUTEROL SO4 0.083% IH SOL 2.5 MG/3 ML VIAL.NEB. NEB PRN (20:56)
[2018-05-25] MEDS: ALBUTEROL SO4 8 GM HFA INHALER IH PRN (21:08)
[2018-05-25] MEDS: MONTELUKAST NA 10 MG TABLET PO SCH (22:24)
[2018-05-25] MEDS: THIAMINE HCL 100 MG TABLET (FP) PO SCH (22:24)
[2018-05-25] MEDS: chlordiazePOXIDE HCL 25 MG CAPSULE PO SCH (22:24)
[2018-05-25] MEDS: MELATONIN 5 MG TABLETS PO PRN (22:26)
[2018-05-25 23:54] LABS: URINE APPEARANCE CLEAR; URINE BILIRUBIN NEGATIVE (<2.0 mg/dL); URINE COLOR LTYELLOW; URINE GLUCOSE (UA) NEGATIVE (NEGATIVE); URINE KETONE NEGATIVE (NEGATIVE); URINE LEUK ESTERASE NEGATIVE (NEGATIVE); URINE NITRITE NEGATIVE (NEGATIVE); URINE PROTEIN NEGATIVE (NEGATIVE); URINE UROBILINOGEN NEGATIVE mg/dL (0.2-1.0)
[2018-05-26] MEDS: chlordiazePOXIDE HCL 25 MG CAPSULE PO PRN ×2 (01:21→14:05)
[2018-05-26] MEDS: guaiFENesin/D-METHORPHAN HB 10 ML UNIT-DOSE CUPS PO PRN ×2 (01:22→23:28)
[2018-05-26] MEDS: chlordiazePOXIDE HCL 25 MG CAPSULE PO SCH ×4 (05:35→22:33)
[2018-05-26] MEDS: METHADONE HCL 10 MG TABLET PO SCH (07:38)
[2018-05-26] MEDS ORDERED: LISINOPRIL 10 MG TABLET (FP) PO SCH (10:00)
[2018-05-26] MEDS: amLODIPine BESYLATE 10 MG TABLET (FP) PO SCH (10:19)
[2018-05-26] MEDS: ASPIRIN 81 MG CHEWABLE TABLETS PO SCH (10:19)
[2018-05-26] MEDS: PRENATAL VITAMINS W/ FOLIC ACID TABLET (FP) PO SCH (10:19)
[2018-05-26 11:16] LABS: HEMATOCRIT 44.3 % (35.4-49); MCH 26.1 pg (25.7-33.7); MCHC 31.5 g/dl (32.0-35.9); MEAN CELL VOLUME 82.8 fl (80-96); MEAN PLT VOLUME 8.9 fl (7.5-11.1); PLATELET COUNT 120 K/MM3 (134-434); RBC 5.35 M/mm3 (4.00-5.60); RDW 15.1 % (11.9-15.9); WHITE BLOOD COUNT 6.6 K/mm3 (4.0-10.0)
[2018-05-26 11:26] LABS: ALBUMIN 3.2 g/dl (3.4-5.0); ALK PHOS 82 U/L (45-117); ANION GAP 7 MMOL/L (8-16); BILIRUBIN,TOTAL 0.6 mg/dL (0.2-1); BLOOD UREA NITROGEN 10 mg/dL (7-18); CHLORIDE 103 mmol/L (98-107); CO2 29 mmol/L (21-32); CREATININE 0.6 mg/dL (0.55-1.3); GLUCOSE,RANDOM 95 mg/dL (74-106); POTASSIUM 4.2 mmol/L (3.5-5.1); SGOT/AST 28 U/L (15-37); SGPT/ALT 41 U/L (13-61); SODIUM 139 mmol/L (136-145); TOT PROT 6.8 g/dl (6.4-8.2)
--- NOTE | 2018-05-26 11:48 | EKG ---
Test Reason : Blood Pressure : / mmHG Vent. Rate : 087 BPM Atrial Rate : 087 BPM P-R Int : 176 ms QRS Dur : 106 ms QT Int : 370 ms P-R-T Axes : 060 -36 061 degrees QTc Int : 445 ms NORMAL SINUS RHYTHM LEFT AXIS DEVIATION INFERIOR INFARCT (CITED ON OR BEFORE 06-NOV-2016) ABNORMAL ECG WHEN COMPARED WITH ECG OF 21-APR-2018 20:23, NO SIGNIFICANT CHANGE WAS FOUND Confirmed by Cody May MD ([id number]) on 05/26/2018 11:48:14 AM Referred By: Confirmed By:Cody May MD
[2018-05-26] MEDS: LORATADINE 10 MG TABLET PO SCH (14:00)
--- NOTE | 2018-05-26 14:31 | PN ---
S CIWA - CIWA Score Nausea/Vomitin Muscle Tremors: 4-Moderate,w/Arms Extend Anxiety: 4-Mod. Anxious/Guarded Agitation: 4-Moderately Restless Paroxysmal Sweats: 3 Orientation: 0-Oriented Tacttile Disturbances: 0-None Auditory Disturbances: 0-None Visual Disturbances: 0-None Headache: 1-Very Mild CIWA-Ar Total Score: 18 [facility] Progress Note (SOAP) Subjective: Nasal congestion, tremor, chills, sweating, interrupted sleep Objective: 05/26/18 14:26 Last Vital Signs Temp Pulse Resp BP Pulse Ox 97.8 F 76 16 131/79 05/26/18 14:15 05/26/18 14:15 05/26/18 14:15 05/26/18 14:15 Laboratory Tests 05/25/18 05/26/18 05/26/18 22:43 07:00 07:00 WBC 6.6 RBC 5.35 Hgb 14.0 Hct 44.3 MCV 82.8 MCH 26.1 MCHC 31.5 L RDW 15.1 Plt Count 120 L MPV 8.9 Sodium 139 Potassium 4.2 Chloride 103 Carbon Dioxide 29 Anion Gap 7 L BUN 10 Creatinine 0.6 Creat Clearance w eGFR > 60 Random Glucose 95 Calcium 9.0 Total Bilirubin 0.6 AST 28 ALT 41 Alkaline Phosphatase 82 Total Protein 6.8 Albumin 3.2 L Urine Color Ltyellow Urine Appearance Clear Urine pH 5.0 D Ur Specific [place] 1.006 L Urine Protein Negative Urine Glucose (UA) Negative Urine Ketones Negative Urine Blood Negative Urine Nitrite Negative Urine Bilirubin Negative Urine Urobilinogen Negative Ur Leukocyte Esterase Negative RPR Titer 05/26/18 07:00 WBC RBC Hgb Hct MCV MCH MCHC RDW Plt Count MPV Sodium Potassium Chloride Carbon Dioxide Anion Gap BUN Creatinine Creat Clearance w eGFR Random Glucose Calcium Total Bilirubin AST ALT Alkaline Phosphatase Total Protein Albumin Urine Color Urine Appearance Urine pH Ur Specific [place] Urine Protein Urine Glucose (UA) Urine Ketones Urine Blood Urine Nitrite Urine Bilirubin Urine Urobilinogen Ur Leukocyte Esterase RPR Titer Nonreactive Labs reviewed: plt 120 Assessment: 05/26/18 14:27 Withdrawal sxs Noted with mild thrombocytopenia Plan: Continue detox Thrombocytopenia, mild: asymptomatic, follow up with your PCP post discharge for monitoring HTN: increase lisinopril to 10mg PO bid due to uncontrolled HTN
--- NOTE | 2018-05-26 14:58 | CONSULT ---
[facility] Psychiatric Consult - Data Date of interview: 05/26/18 Admission source: [facility] Identifying data: Patient is a 58 year old single male, father of three, unemployed, resides in a half-way and is supported by disability benefits. This is one of multiple admissions for patient. Patient admitted to for alcohol dependence. Substance Abuse History: - Smoking Cessation. Smoking history: Current every day smoker. Have you smoked in the past 12 months: Yes. Aproximately how many cigarettes per day: 2. Hx Chewing Tobacco Use: No. Initiated information on smoking cessation: Yes. 'Breaking Loose' booklet given: 05/25/18. - Substance & Tx. History. Hx Alcohol Use: Yes. Hx Substance Use: Yes. Substance Use Type : Alcohol, Heroin. Hx Substance Use Treatment: Yes (detox, rehab; currently on a MMTP). - Substances Abused. Alcohol. Route: Oral. Frequency: Daily. Amount used: 10 cans beer/ 1 pint 12. Age of first use: 13. Date of Last Use: 05/25/18 Medical History: Significant for bronchial COPD, hypertension, obesity, arthritis right knee, Saba's cyst right knee and history of DVT right leg. Psychiatric History: Patient reports multiple psychiatric hospitalizations, most recently 5-6 years ago at [facility]. Diagnosis of Bipolar disorder. He is also known to [facility]. Most recent outpatient psychiatric services was provided 2 months ago at the half-way he was living at in the past. Patient was prescribed abilify 10mg + Trazdone 100mg. He reports medication noncompliance. Last accepted medication during detox in April of 2018. Patient is currently on methadone maintenance of 20mg daily. He reports h/ o suicide attempt by overdose and cutting wrist. Pt. currently requesting to restart abilify 10mg. Physical/Sexual Abuse/Trauma History: denies. Mental Status Exam - Mental Status Exam Alert and Oriented to: Time, Place, Person Cognitive Function: Good Patient Appearance: Well Groomed Mood: Euthymic Affect: Mood Congruent Patient Behavior: Fatigued, Cooperative Speech Pattern: Appropriate Voice Loudness: Normal Thought Process: Intact, Goal Oriented Thought Disorder: Not Present Hallucinations: Denies Suicidal Ideation: Denies Homicidal Ideation: Denies Insight/Judgement: Poor Sleep: Fair Appetite: Fair Muscle strength/Tone: Normal Gait/Station: Other (Patient ambulates with a cane.) Psychiatric Findings - Problem List ([place] 1, 2,3) (1) Alcohol dependence with uncomplicated withdrawal Current Visit: Yes Status: Acute (2) Opioid dependence on agonist therapy Current Visit: Yes Status: Chronic Comment: on MMTP 20mg, dose pending verification (3) Bipolar disorder Current Visit: Yes Status: Chronic (4) Nicotine dependence Current Visit: Yes Status: Chronic Qualifiers: Nicotine product type: cigarettes Substance use status: uncomplicated Qualified Code(s): F17.210 - Nicotine dependence, cigarettes, uncomplicated - Initial Treatment Plan Initial Treatment Plan: Psychoeducation provided. Detoxification in progress. Will order Abilify 10mg qhs. Benefits and side effects discussed. Trazodone not to be ordered at this time due to patient observed to be mildly sedated. Verbal consent given.
[2018-05-26] MEDS: ALBUTEROL SO4 8 GM HFA INHALER IH PRN (17:31)
[2018-05-26] MEDS: FLUTICASONE PROP 0.05% 16 GM NASAL SPRAY NS SCH (22:32)
[2018-05-26] MEDS: ARIPiprazole 10 MG TABLET PO SCH (22:33)
[2018-05-26] MEDS: THIAMINE HCL 100 MG TABLET (FP) PO SCH (22:33)
[2018-05-26] MEDS: LISINOPRIL 10 MG TABLET (FP) PO SCH (22:33)
[2018-05-26] MEDS: MONTELUKAST NA 10 MG TABLET PO SCH (22:33)
[2018-05-26] MEDS: MELATONIN 5 MG TABLETS PO PRN (23:28)
[2018-05-27] MEDS: ALBUTEROL SO4 8 GM HFA INHALER IH PRN ×2 (04:19→22:47)
[2018-05-27] MEDS: METHADONE HCL 10 MG TABLET PO SCH (05:43)
[2018-05-27] MEDS: chlordiazePOXIDE HCL 25 MG CAPSULE PO SCH ×3 (05:43→16:57)
[2018-05-27] MEDS: PRENATAL VITAMINS W/ FOLIC ACID TABLET (FP) PO SCH (10:07)
[2018-05-27] MEDS: LISINOPRIL 10 MG TABLET (FP) PO SCH ×2 (10:07→22:06)
[2018-05-27] MEDS: ASPIRIN 81 MG CHEWABLE TABLETS PO SCH (10:07)
[2018-05-27] MEDS: LORATADINE 10 MG TABLET PO SCH (10:07)
[2018-05-27] MEDS: amLODIPine BESYLATE 10 MG TABLET (FP) PO SCH (10:08)
--- NOTE | 2018-05-27 13:27 | PN ---
S CIWA - CIWA Score Nausea/Vomitin Muscle Tremors: 4-Moderate,w/Arms Extend Anxiety: 3 Agitation: 3 Paroxysmal Sweats: 3 Orientation: 0-Oriented Tacttile Disturbances: 0-None Auditory Disturbances: 0-None Visual Disturbances: 0-None Headache: 0-None Present CIWA-Ar Total Score: 15 [facility] Progress Note (SOAP) Subjective: Sweating, tremor, anxious, interrupted sleep Objective: 05/27/18 13:26 Last Vital Signs Temp Pulse Resp BP Pulse Ox 97.2 F L 58 L 18 126/78 05/27/18 06:43 05/27/18 06:43 05/27/18 06:43 05/27/18 06:43 Laboratory Tests 05/25/18 05/26/18 05/26/18 22:43 07:00 07:00 WBC 6.6 RBC 5.35 Hgb 14.0 Hct 44.3 MCV 82.8 MCH 26.1 MCHC 31.5 L RDW 15.1 Plt Count 120 L MPV 8.9 Sodium 139 Potassium 4.2 Chloride 103 Carbon Dioxide 29 Anion Gap 7 L BUN 10 Creatinine 0.6 Creat Clearance w eGFR > 60 Random Glucose 95 Calcium 9.0 Total Bilirubin 0.6 AST 28 ALT 41 Alkaline Phosphatase 82 Total Protein 6.8 Albumin 3.2 L Urine Color Ltyellow Urine Appearance Clear Urine pH 5.0 D Ur Specific [place] 1.006 L Urine Protein Negative Urine Glucose (UA) Negative Urine Ketones Negative Urine Blood Negative Urine Nitrite Negative Urine Bilirubin Negative Urine Urobilinogen Negative Ur Leukocyte Esterase Negative RPR Titer 05/26/18 07:00 WBC RBC Hgb Hct MCV MCH MCHC RDW Plt Count MPV Sodium Potassium Chloride Carbon Dioxide Anion Gap BUN Creatinine Creat Clearance w eGFR Random Glucose Calcium Total Bilirubin AST ALT Alkaline Phosphatase Total Protein Albumin Urine Color Urine Appearance Urine pH Ur Specific [place] Urine Protein Urine Glucose (UA) Urine Ketones Urine Blood Urine Nitrite Urine Bilirubin Urine Urobilinogen Ur Leukocyte Esterase RPR Titer Nonreactive Labs reviewed Assessment: 05/27/18 13:27 Withdrawal sxs Plan: Continue detox
[2018-05-27] MEDS: chlordiazePOXIDE HCL 25 MG CAPSULE PO PRN (14:29)
[2018-05-27] MEDS: guaiFENesin/D-METHORPHAN HB 10 ML UNIT-DOSE CUPS PO PRN (21:22)
[2018-05-27] MEDS: FLUTICASONE PROP 0.05% 16 GM NASAL SPRAY NS SCH (22:06)
[2018-05-27] MEDS: chlordiazePOXIDE 5 MG CAPSULE PO SCH (22:06)
[2018-05-27] MEDS: ARIPiprazole 10 MG TABLET PO SCH (22:06)
[2018-05-27] MEDS: MONTELUKAST NA 10 MG TABLET PO SCH (22:06)
[2018-05-27] MEDS: MELATONIN 5 MG TABLETS PO PRN (22:07)
[2018-05-27] MEDS: THIAMINE HCL 100 MG TABLET (FP) PO SCH (22:07)
[2018-05-28] MEDS: METHADONE HCL 10 MG TABLET PO SCH (05:14)
[2018-05-28] MEDS: chlordiazePOXIDE 5 MG CAPSULE PO SCH ×3 (05:14→17:26)
[2018-05-28] MEDS: amLODIPine BESYLATE 10 MG TABLET (FP) PO SCH (10:32)
[2018-05-28] MEDS: LISINOPRIL 10 MG TABLET (FP) PO SCH ×2 (10:32→22:15)
[2018-05-28] MEDS: LORATADINE 10 MG TABLET PO SCH (10:32)
[2018-05-28] MEDS: ASPIRIN 81 MG CHEWABLE TABLETS PO SCH (10:33)
[2018-05-28] MEDS: PRENATAL VITAMINS W/ FOLIC ACID TABLET (FP) PO SCH (10:33)
--- NOTE | 2018-05-28 14:02 | PN ---
[facility] Progress Note (SOAP) Subjective: Tremor, headache, sweating, interrupted sleep Objective: 05/28/18 14:17 Last Vital Signs Temp Pulse Resp BP Pulse Ox 95.5 F L 77 18 158/89 05/28/18 13:11 05/28/18 13:11 05/28/18 13:11 05/28/18 13:11 Elevated b/p noted: has htn (on med) Laboratory Tests 05/25/18 05/26/18 05/26/18 22:43 07:00 07:00 WBC 6.6 RBC 5.35 Hgb 14.0 Hct 44.3 MCV 82.8 MCH 26.1 MCHC 31.5 L RDW 15.1 Plt Count 120 L MPV 8.9 Sodium 139 Potassium 4.2 Chloride 103 Carbon Dioxide 29 Anion Gap 7 L BUN 10 Creatinine 0.6 Creat Clearance w eGFR > 60 Random Glucose 95 Calcium 9.0 Total Bilirubin 0.6 AST 28 ALT 41 Alkaline Phosphatase 82 Total Protein 6.8 Albumin 3.2 L Urine Color Ltyellow Urine Appearance Clear Urine pH 5.0 D Ur Specific [place] 1.006 L Urine Protein Negative Urine Glucose (UA) Negative Urine Ketones Negative Urine Blood Negative Urine Nitrite Negative Urine Bilirubin Negative Urine Urobilinogen Negative Ur Leukocyte Esterase Negative RPR Titer 05/26/18 07:00 WBC RBC Hgb Hct MCV MCH MCHC RDW Plt Count MPV Sodium Potassium Chloride Carbon Dioxide Anion Gap BUN Creatinine Creat Clearance w eGFR Random Glucose Calcium Total Bilirubin AST ALT Alkaline Phosphatase Total Protein Albumin Urine Color Urine Appearance Urine pH Ur Specific [place] Urine Protein Urine Glucose (UA) Urine Ketones Urine Blood Urine Nitrite Urine Bilirubin Urine Urobilinogen Ur Leukocyte Esterase RPR Titer Nonreactive Labs reviewed Assessment: 05/28/18 14:19 Withdrawal sxs Plan: Continue detox HTN: continue present regimen
[2018-05-28] MEDS: ARIPiprazole 10 MG TABLET PO SCH (22:15)
[2018-05-28] MEDS: THIAMINE HCL 100 MG TABLET (FP) PO SCH (22:15)
[2018-05-28] MEDS: FLUTICASONE PROP 0.05% 16 GM NASAL SPRAY NS SCH (22:15)
[2018-05-28] MEDS: MONTELUKAST NA 10 MG TABLET PO SCH (22:15)
[2018-05-28] MEDS: chlordiazePOXIDE HCL 10 MG CAPSULE PO SCH (22:16)
[2018-05-28] MEDS: MELATONIN 5 MG TABLETS PO PRN (22:16)
[2018-05-28] MEDS: ALBUTEROL SO4 8 GM HFA INHALER IH PRN (23:54)
[2018-05-29] MEDS: chlordiazePOXIDE HCL 10 MG CAPSULE PO SCH (05:13)
[2018-05-29] MEDS: METHADONE HCL 10 MG TABLET PO SCH (05:15)
[2018-05-29 10:03] VITALS: BP 116/66; PULSE 86; TEMP 97.6
[2018-05-29] MEDS: PRENATAL VITAMINS W/ FOLIC ACID TABLET (FP) PO SCH (10:21)
[2018-05-29] MEDS: amLODIPine BESYLATE 10 MG TABLET (FP) PO SCH (10:22)
[2018-05-29] MEDS: LORATADINE 10 MG TABLET PO SCH (10:23)
[2018-05-29] MEDS: LISINOPRIL 10 MG TABLET (FP) PO SCH (10:23)
[2018-05-29] MEDS: ASPIRIN 81 MG CHEWABLE TABLETS PO SCH (10:23)
--- NOTE | 2018-05-29 16:10 | DS ---
[facility] Detox Discharge Summary Admission Date: 05/25/18 Discharge Date: 05/29/18 - History Present History: Alcohol Dependence, Opioid Dependence Pertinent Past History: OA COPD HTN Obesity - Physical Exam Results Vital Signs: Vital Signs Temperature 97.6 F 05/29/18 10:02 Pulse Rate 86 05/29/18 10:02 Respiratory Rate 20 05/29/18 10:02 Blood Pressure 116/66 05/29/18 10:02 O2 Sat by Pulse Oximetry (%) Pertinent Admission Physical Exam Findings: Withdrawal sxs Laboratory Tests 05/25/18 05/26/18 05/26/18 22:43 07:00 07:00 WBC 6.6 RBC 5.35 Hgb 14.0 Hct 44.3 MCV 82.8 MCH 26.1 MCHC 31.5 L RDW 15.1 Plt Count 120 L MPV 8.9 Sodium 139 Potassium 4.2 Chloride 103 Carbon Dioxide 29 Anion Gap 7 L BUN 10 Creatinine 0.6 Creat Clearance w eGFR > 60 Random Glucose 95 Calcium 9.0 Total Bilirubin 0.6 AST 28 ALT 41 Alkaline Phosphatase 82 Total Protein 6.8 Albumin 3.2 L Urine Color Ltyellow Urine Appearance Clear Urine pH 5.0 D Ur Specific [place] 1.006 L Urine Protein Negative Urine Glucose (UA) Negative Urine Ketones Negative Urine Blood Negative Urine Nitrite Negative Urine Bilirubin Negative Urine Urobilinogen Negative Ur Leukocyte Esterase Negative RPR Titer 05/26/18 07:00 WBC RBC Hgb Hct MCV MCH MCHC RDW Plt Count MPV Sodium Potassium Chloride Carbon Dioxide Anion Gap BUN Creatinine Creat Clearance w eGFR Random Glucose Calcium Total Bilirubin AST ALT Alkaline Phosphatase Total Protein Albumin Urine Color Urine Appearance Urine pH Ur Specific [place] Urine Protein Urine Glucose (UA) Urine Ketones Urine Blood Urine Nitrite Urine Bilirubin Urine Urobilinogen Ur Leukocyte Esterase RPR Titer Nonreactive Labs reviewed - Treatment Hospital Course: Detox Protocol Followed, Detoxed Safely, Responded well, Discharged Condition Good, Rehab Referral Accepted - Medication Discharge Medications: Ambulatory Orders Amlodipine Besylate [Norvasc -] 10 mg PO DAILY #30 tablet 05/02/18 Aripiprazole [Abilify -] 10 mg PO HS #30 tablet 05/02/18 Aspirin [ASA -] 81 mg PO DAILY #30 tab.chew 05/02/18 Lisinopril [Prinivil] 10 mg PO DAILY #30 tablet 05/02/18 Montelukast Na [Singulair -] 10 mg PO HS #30 tablet 05/02/18 traZODone HCL [Desyrel -] 100 mg PO HS #30 tablet 05/02/18 - Diagnosis (1) Alcohol dependence with uncomplicated withdrawal Status: Acute (2) Osteoarthritis of knees, bilateral Status: Chronic Qualifiers: Osteoarthritis type: unspecified Qualified Code(s): M17.0 - Bilateral primary osteoarthritis of knee (3) COPD (chronic obstructive pulmonary disease) Status: Chronic Qualifiers: COPD type: unspecified COPD Qualified Code(s): J44.9 - Chronic obstructive pulmonary disease, unspecified (4) HTN (hypertension) Status: Chronic Qualifiers: Hypertension type: essential hypertension Qualified Code(s): I10 - Essential (primary) hypertension (5) Nicotine dependence Status: Chronic Qualifiers: Nicotine product type: cigarettes Substance use status: uncomplicated Qualified Code(s): F17.210 - Nicotine dependence, cigarettes, uncomplicated (6) Obesity Status: Chronic Qualifiers: Obesity type: due to excess calories Obesity classification: adult class 1 (BMI 30 - 34.9) Serious obesity comorbidity presence: unspecified whether serious comorbidity present Body mass index: BMI 32.0-32.9 Qualified Code(s) : E66.09 - Other obesity due to excess calories; Z68.32 - Body mass index (BMI) 32.0-32.9, adult (7) Opioid dependence on agonist therapy Status: Chronic - AMA Did Patient Leave Against Medical Advice: No (F/U with your PCP within 1-2 weeks )
== END 2018-05-29 10:21 | disposition home or self-care (01) | DRG 773 ==
LOC: YASAS 12:20 → Y3N 18:38
PROC: HZ2ZZZZ Detoxification Services for Substance Abuse Treatment (ICD-10-PCS; principal; 2018-05-25)
DX: F10.230 Alcohol dependence with withdrawal, uncomplicated (principal); F11.20 Opioid dependence, uncomplicated; F17.210 Nicotine dependence, cigarettes, uncomplicated; F31.9 Bipolar disorder, unspecified; I10 Essential (primary) hypertension; J44.9 Chronic obstructive pulmonary disease, unspecified; M17.0 Bilateral primary osteoarthritis of knee; D69.6 Thrombocytopenia, unspecified; R01.1 Cardiac murmur, unspecified; E66.09 Other obesity due to excess calories; Z68.32 Body mass index [BMI] 32.0-32.9, adult; R26.2 Difficulty in walking, not elsewhere classified; Z99.89 Dependence on other enabling machines and devices; Z91.14 Patient's other noncompliance with medication regimen; Z91.013 Allergy to seafood
CPT/HCPCS: 36415; 80053; 81003; 85027; 86593; 93005; 93010; J0735

== ENCOUNTER 2018-07-07 18:08 | Inpatient (IN) | payer OTHER ==
[2018-07-07 19:14] VITALS: BMI 33.5
--- NOTE | 2018-07-07 21:39 | HP ---
CIWA Score Nausea/Vomitin-Int. Nausea w/Dry Heave Muscle Tremors: None Anxiety: 1-Mildly Anxious Agitation: 0-Normal Activity Paroxysmal Sweats: No Perspiration Orientation: 0-Oriented Tacttile Disturbances: 0-None Auditory Disturbances: 1-Very Mild Visual Disturbances: 1-Very Mild Sensitivity Headache: 0-None Present CIWA-Ar Total Score: 7 - Admission Criteria OASAS Guidelines: Admission for Medically Managed Detox: Requires at least one of the followin. CIWA greater than 12 2. Seizures within the past 24 hours 3. Delirium tremens within the past 24 hours 4. Hallucinations within the past 24 hours 5. Acute intervention needed for co occurring medical disorder 6. Acute intervention needed for co occurring psychiatric disorder 7. Severe withdrawal that cannot be handled at a lower level of care (continued vomiting, continued diarrhea, abnormal vital signs) requiring intravenous medication and/or fluids 8. Admission ROS [facility] Allergies/Adverse Reactions: Allergies Allergy/AdvReac Type Severity Reaction Status Date / Time shellfish derived Allergy Severe Rash Verified 07/07/18 19:39 No Known Drug Allergies Allergy Verified 07/07/18 19:39 History of Present Illness: patient here requesting detox from etoh use , reports use " as much as I can get my hands on" , 10 cans of beer/ day , sometimes liquor as well , has been drinking " all his life " , reports withdrawal if not drinking , + drinking in the morning to stop tremors , denies seizures , + blackouts , + occasional falls , most recently 1 week ago denies injuries to self or others , using cane for knee OA . Reports he was at [facility] 2 weeks ago for pneumonia/ COPD , did not take meds rx . utox + bzo , most recent detox 2-3 months ago . per report, pt in MMTP 20 mg , claims latest taken today , @ [facility]. ADALBERTO 0.248 tobacco use : 2-3 cigarettes/ day BP 110/74 P 94 PMHX : htn , OA , asthma PSHx : denies Psych : bipolar d/o , no meds . Exam Limitations: Intoxication - Ebola screening Have you traveled outside of the country in the last 21 days: No (N) Have you had contact with anyone from an Ebola affected area: No Have you been sick,other than usual withdrawal symptoms: No Do you have a fever: No - Review of Systems Constitutional: See HPI EENT: reports: See HPI, Other (no glasses , missing teeth) Respiratory: reports: No Symptoms reported Cardiac: reports: No Symptoms Reported GI: reports: Nausea, Vomiting Musculoskeletal: reports: Joint Pain, Joint Stiffness Integumentary: reports: No Symptoms Reported Neuro: reports: No Symptoms reported Psychiatric: reports: Agitated, Anxious Patient History - Patient Medical History Hx Anemia: No Hx Asthma: Yes Hx Chronic Obstructive Pulmonary Disease (COPD): Yes Hx Cancer: No Hx Cardiac Disorders: No Hx Congestive Heart Failure: No Hx Hypertension: Yes (non compliant.) Hx Hypercholesterolemia: No Hx Pacemaker: No HX Cerebrovascular Accident: No Hx Seizures: No Hx Dementia: No Hx Diabetes: No Hx Gastrointestinal Disorders: No Hx Liver Disease: No Hx Genitourinary Disorders: No Hx Sexually Transmitted Disorders: No Hx Renal Disease (ESRD): No Hx Thyroid Disease: No Hx Human Immunodeficiency Virus (HIV): No (last 2014 negative) Hx Hepatitis C: No Hx Depression: Yes Hx Suicide Attempt: No Hx Bipolar Disorder: Yes (bipolar depression) Hx Schizophrenia: No - Patient Surgical History Past Surgical History: No Hx Neurologic Surgery: No Hx Cataract Extraction: No Hx Cardiac Surgery: No Hx Lung Surgery: No Hx Breast Surgery: No Hx Breast Biopsy: No Hx Abdominal Surgery: No Hx Appendectomy: No Hx Cholecystectomy: No Hx Genitourinary Surgery: No Hx Section: No Hx Orthopedic Surgery: No Anesthesia Reaction: No - PPD History Previous Implant?: Yes Documented Results: Negative w/proof Date: 04/23/18 Results: 0 mm - Smoking Cessation Smoking history: Current every day smoker Have you smoked in the past 12 months: Yes Aproximately how many cigarettes per day: 2 Hx Chewing Tobacco Use: No Initiated information on smoking cessation: No - Substances Abused Alcohol Route: Oral Frequency: Daily Amount used: LIQUOR- 1 PINT, BEER- 1 SIX PACK Age of first use: 16 Date of Last Use: 07/07/18 Family Disease History - Family Disease History Family History: Unable to Obtain (patient intoxicated , states " everybody is ") Admission Physical Exam BHS - Vital Signs Vital Signs: Vital Signs - 24 hr 07/07/18 19:10 Temperature 99.2 F Pulse Rate 94 H Respiratory 18 Rate Blood Pressure 110/74 - Physical General Appearance: Yes: Disheveled, Alcohol on Breath, Intoxicated, Irritable, Anxious HEENTM: Yes: Hearing grossly Normal, Pharynx Normal, Muffled/Hoarse Voice, Other Respiratory: Yes: Chest Non-Tender, Decreased Breath Sounds, Rhonchi, Wheezing Neck: Yes: No masses,lesions,Nodules, Trachea in good position Cardiology: Yes: Regular Rhythm, Regular Rate, Tachycardia Abdominal: Yes: Non Tender, Protuberent Genitourinary: Yes: Within Normal Limits Musculoskeletal: Yes: Joint Stiffness, Other (staggering gait , using cane) Extremities: Yes: Non-Tender, Pedal Edema, Other (neg Homans , states has had swelling in the legs intermittently , denies pain) Neurological: Yes: Alert, Motor Strength 5/5, Confused - Diagnostic (1) Alcohol dependence with uncomplicated withdrawal Current Visit: No Status: Acute (2) Asthma Current Visit: No Status: Chronic Qualifiers: Asthma severity: mild (3) HTN (hypertension) Current Visit: No Status: Chronic Qualifiers: Hypertension type: essential hypertension Qualified Code(s): I10 - Essential (primary) hypertension (4) Nicotine dependence Current Visit: No Status: Chronic Qualifiers: Nicotine product type: cigarettes Substance use status: uncomplicated Qualified Code(s): F17.210 - Nicotine dependence, cigarettes, uncomplicated (5) Obesity Current Visit: No Status: Chronic Qualifiers: Obesity type: due to excess calories Obesity classification: adult class 1 (BMI 30 - 34.9) Serious obesity comorbidity presence: unspecified whether serious comorbidity present Body mass index: BMI 32.0-32.9 Qualified Code(s) : E66.09 - Other obesity due to excess calories; Z68.32 - Body mass index (BMI) 32.0-32.9, adult (6) Opioid dependence on agonist therapy Current Visit: No Status: Chronic Comment: on MMTP 20mg, dose pending verification (7) Osteoarthritis of knees, bilateral Current Visit: No Status: Chronic Qualifiers: Osteoarthritis type: unspecified Qualified Code(s): M17.0 - Bilateral primary osteoarthritis of knee (8) Use of cane as ambulatory aid Current Visit: No Status: Chronic BHS Breath Alcohol Content Breath Alcohol Content: 0.248 Urine Drug Screen - Results Urine Drug Screen Results: BZO-Benzodiazepines
[2018-07-07] MEDS ORDERED: MAGNESIUM HYDROX 2400MG/30ML ORAL SUSPENSION 30 ML CUP PO PRN (21:46)
[2018-07-07] MEDS ORDERED: MAG HYDROX/AL HYDROX/SIMETH 30 ML UNIT-DOSE CUP PO PRN (21:46)
[2018-07-07] MEDS ORDERED: P-EPHED 60MG/TRIPROLIDI 2.5MG TABLET PO PRN (21:46)
[2018-07-07] MEDS ORDERED: MAGNESIUM CITRATE 300 ML BOTTLE PO PRN (21:46)
[2018-07-07] MEDS ORDERED: chlordiazePOXIDE HCL 25 MG CAPSULE PO PRN (21:46)
[2018-07-07] MEDS ORDERED: MENTHOL/PHENOL 1 EACH UD MM PRN (21:46)
[2018-07-07] MEDS ORDERED: guaiFENesin/D-METHORPHAN HB 10 ML UNIT-DOSE CUPS PO PRN (21:46)
[2018-07-07] MEDS ORDERED: IBUPROFEN 400 MG TABLET (FP) PO PRN (21:46)
[2018-07-07] MEDS ORDERED: ACETAMINOPHEN 325 MG TABLET (FP) PO PRN (21:46)
[2018-07-07] MEDS ORDERED: ALBUTEROL SO4 0.083% IH SOL 2.5 MG/3 ML VIAL.NEB. NEB PRN (21:48)
[2018-07-07] MEDS ORDERED: ALBUTEROL SO4 8 GM HFA INHALER IH PRN (21:48)
[2018-07-07] MEDS: chlordiazePOXIDE HCL 25 MG CAPSULE PO SCH (23:45)
[2018-07-07] MEDS: MONTELUKAST NA 10 MG TABLET PO SCH (23:46)
[2018-07-07] MEDS: BUDESONIDE/FORMETEROL FUMARATE 80/4.5 mcg INHALER IH SCH (23:46)
[2018-07-07] MEDS: THIAMINE HCL 100 MG TABLET (FP) PO SCH (23:46)
[2018-07-08 00:46] LABS: URINE APPEARANCE CLEAR; URINE BILIRUBIN NEGATIVE (<2.0 mg/dL); URINE COLOR STRAW; URINE GLUCOSE (UA) NEGATIVE (NEGATIVE); URINE KETONE NEGATIVE (NEGATIVE); URINE LEUK ESTERASE NEGATIVE (NEGATIVE); URINE NITRITE NEGATIVE (NEGATIVE); URINE PROTEIN NEGATIVE (NEGATIVE); URINE UROBILINOGEN NEGATIVE mg/dL (0.2-1.0)
[2018-07-08] MEDS: chlordiazePOXIDE HCL 25 MG CAPSULE PO SCH ×4 (06:18→22:08)
[2018-07-08] MEDS ORDERED: METHADONE HCL 10 MG TABLET PO ONE (08:20)
--- NOTE | 2018-07-08 10:08 | PN ---
S CIWA - CIWA Score Nausea/Vomitin-No Nausea/No Vomiting Muscle Tremors: 3 Anxiety: 3 Agitation: 3 Paroxysmal Sweats: 3 Orientation: 0-Oriented Tacttile Disturbances: 0-None Auditory Disturbances: 0-None Visual Disturbances: 0-None Headache: 0-None Present CIWA-Ar Total Score: 12 BHS Progress Note (SOAP) Subjective: irritable sweats agitation body aches Objective: 07/08/18 10:06 Vital Signs Temperature 98.1 F 07/08/18 09:53 Pulse Rate 98 H 07/08/18 09:53 Respiratory Rate 18 07/08/18 09:53 Blood Pressure 143/86 07/08/18 09:53 O2 Sat by Pulse Oximetry (%) Laboratory Tests 07/07/18 23:26 Urine Color Straw Urine Appearance Clear Urine pH 5.0 Ur Specific [place] 1.005 L Urine Protein Negative Urine Glucose (UA) Negative Urine Ketones Negative Urine Blood Negative Urine Nitrite Negative Urine Bilirubin Negative Urine Urobilinogen Negative Ur Leukocyte Esterase Negative rest of labs pending aaox3 ambulating no acute distress Assessment: 07/08/18 10:07 withdrawal sx Plan: continue detox increase fluids rest of labs pending
[2018-07-08] MEDS: BUDESONIDE/FORMETEROL FUMARATE 80/4.5 mcg INHALER IH SCH ×2 (10:18→22:07)
[2018-07-08] MEDS: ASPIRIN 81 MG CHEWABLE TABLETS PO SCH (10:19)
[2018-07-08] MEDS: PRENATAL VITAMINS W/ FOLIC ACID TABLET (FP) PO SCH (10:19)
[2018-07-08] MEDS: LISINOPRIL 10 MG TABLET (FP) PO SCH (10:19)
[2018-07-08] MEDS: amLODIPine BESYLATE 10 MG TABLET (FP) PO SCH (10:19)
[2018-07-08 10:38] LABS: HEMATOCRIT 44.2 % (35.4-49); MCH 25.8 pg (25.7-33.7); MCHC 31.7 g/dl (32.0-35.9); MEAN CELL VOLUME 81.5 fl (80-96); MEAN PLT VOLUME 8.1 fl (7.5-11.1); PLATELET COUNT 100 K/MM3 (134-434); RBC 5.42 M/mm3 (4.00-5.60); RDW 14.9 % (11.9-15.9); WHITE BLOOD COUNT 4.4 K/mm3 (4.0-10.0)
[2018-07-08 11:07] LABS: ALBUMIN 3.2 g/dl (3.4-5.0); ALK PHOS 92 U/L (45-117); ANION GAP 9 MMOL/L (8-16); BILIRUBIN,TOTAL 0.4 mg/dL (0.2-1); BLOOD UREA NITROGEN 10 mg/dL (7-18); CALCIUM 8.5 mg/dL (8.5-10.1); CHLORIDE 102 mmol/L (98-107); CO2 27 mmol/L (21-32); CREATININE 0.5 mg/dL (0.55-1.3); GLUCOSE,RANDOM 117 mg/dL (74-106); POTASSIUM 4.1 mmol/L (3.5-5.1); SGOT/AST 43 U/L (15-37); SGPT/ALT 58 U/L (13-61); SODIUM 138 mmol/L (136-145); TOT PROT 6.9 g/dl (6.4-8.2)
[2018-07-08] MEDS ORDERED: cloNIDine HCL 0.1 MG TABLET PO ONE (21:07)
[2018-07-08] MEDS: THIAMINE HCL 100 MG TABLET (FP) PO SCH (22:08)
[2018-07-08] MEDS: MONTELUKAST NA 10 MG TABLET PO SCH (22:08)
[2018-07-08] MEDS: MELATONIN 5 MG TABLETS PO PRN (22:09)
[2018-07-09] MEDS: chlordiazePOXIDE HCL 25 MG CAPSULE PO SCH ×3 (05:38→17:33)
[2018-07-09] MEDS: METHADONE HCL 10 MG TABLET PO SCH (05:39)
[2018-07-09] MEDS: amLODIPine BESYLATE 10 MG TABLET (FP) PO SCH (10:20)
[2018-07-09] MEDS: PRENATAL VITAMINS W/ FOLIC ACID TABLET (FP) PO SCH (10:20)
[2018-07-09] MEDS: LISINOPRIL 10 MG TABLET (FP) PO SCH (10:20)
[2018-07-09] MEDS: ASPIRIN 81 MG CHEWABLE TABLETS PO SCH (10:20)
[2018-07-09] MEDS: BUDESONIDE/FORMETEROL FUMARATE 80/4.5 mcg INHALER IH SCH ×2 (10:21→23:00)
--- NOTE | 2018-07-09 10:21 | PN ---
[facility] CIWA - CIWA Score Nausea/Vomitin-No Nausea/No Vomiting Muscle Tremors: 3 Anxiety: 3 Agitation: 3 Paroxysmal Sweats: 2 Orientation: 0-Oriented Tacttile Disturbances: 0-None Auditory Disturbances: 0-None Visual Disturbances: 0-None Headache: 0-None Present CIWA-Ar Total Score: 11 BHS Progress Note (SOAP) Subjective: agitation sweats interrupted sleep Objective: 07/09/18 10:19 Vital Signs Temperature 97.9 F 07/09/18 09:33 Pulse Rate 71 07/09/18 09:33 Respiratory Rate 18 07/09/18 09:33 Blood Pressure 126/62 07/09/18 09:33 O2 Sat by Pulse Oximetry (%) Laboratory Tests 07/07/18 07/08/18 07/08/18 23:26 07:30 07:30 WBC 4.4 RBC 5.42 Hgb 14.0 Hct 44.2 MCV 81.5 MCH 25.8 MCHC 31.7 L RDW 14.9 Plt Count 100 L MPV 8.1 Sodium 138 Potassium 4.1 Chloride 102 Carbon Dioxide 27 Anion Gap 9 BUN 10 Creatinine 0.5 L Creat Clearance w eGFR > 60 Random Glucose 117 H Calcium 8.5 Total Bilirubin 0.4 AST 43 H ALT 58 Alkaline Phosphatase 92 Total Protein 6.9 Albumin 3.2 L Urine Color Straw Urine Appearance Clear Urine pH 5.0 Ur Specific [place] 1.005 L Urine Protein Negative Urine Glucose (UA) Negative Urine Ketones Negative Urine Blood Negative Urine Nitrite Negative Urine Bilirubin Negative Urine Urobilinogen Negative Ur Leukocyte Esterase Negative aaox3 ambulating no acute distress Assessment: 07/09/18 10:20 withdrawal sx Plan: continue detox increase fluids
[2018-07-09] MEDS: MONTELUKAST NA 10 MG TABLET PO SCH (23:02)
[2018-07-09] MEDS: chlordiazePOXIDE 5 MG CAPSULE PO SCH (23:03)
[2018-07-09] MEDS: THIAMINE HCL 100 MG TABLET (FP) PO SCH (23:03)
[2018-07-09] MEDS: MELATONIN 5 MG TABLETS PO PRN (23:04)
[2018-07-10] MEDS: METHADONE HCL 10 MG TABLET PO SCH (05:44)
[2018-07-10] MEDS: chlordiazePOXIDE 5 MG CAPSULE PO SCH ×2 (05:45→10:16)
[2018-07-10 09:21] VITALS: BP 128/83; PULSE 73; TEMP 98.2
[2018-07-10] MEDS: LISINOPRIL 10 MG TABLET (FP) PO SCH (10:16)
[2018-07-10] MEDS: ASPIRIN 81 MG CHEWABLE TABLETS PO SCH (10:16)
[2018-07-10] MEDS: BUDESONIDE/FORMETEROL FUMARATE 80/4.5 mcg INHALER IH SCH (10:16)
[2018-07-10] MEDS: amLODIPine BESYLATE 10 MG TABLET (FP) PO SCH (10:16)
[2018-07-10] MEDS: PRENATAL VITAMINS W/ FOLIC ACID TABLET (FP) PO SCH (10:16)
--- NOTE | 2018-07-10 12:08 | PN ---
S Progress Note Note: pt did not want to continue with his detox; states I want to go home; Pt signed out AMA.
--- NOTE | 2018-07-10 12:11 | DS ---
[facility] Detox Discharge Summary Admission Date: 07/07/18 - History Present History: Alcohol Dependence, Opioid Dependence - Physical Exam Results Vital Signs: Vital Signs Temperature 98.2 F 07/10/18 09:20 Pulse Rate 73 07/10/18 09:20 Respiratory Rate 18 07/10/18 09:20 Blood Pressure 128/83 07/10/18 09:20 O2 Sat by Pulse Oximetry (%) - Treatment Hospital Course: Discharged Condition Good - Medication Discharge Medications: Ambulatory Orders Amlodipine Besylate [Norvasc -] 10 mg PO DAILY #30 tablet 05/02/18 Aripiprazole [Abilify -] 10 mg PO HS #30 tablet 05/02/18 Aspirin [ASA -] 81 mg PO DAILY #30 tab.chew 05/02/18 Lisinopril [Prinivil] 10 mg PO DAILY #30 tablet 05/02/18 Montelukast Na [Singulair -] 10 mg PO HS #30 tablet 05/02/18 traZODone HCL [Desyrel -] 100 mg PO HS #30 tablet 05/02/18 - Diagnosis (1) Alcohol dependence with uncomplicated withdrawal Current Visit: Yes Status: Chronic (2) Alcohol-induced sleep disorder Current Visit: No Status: Acute (3) Murmur, cardiac Current Visit: No Status: Acute (4) Arthritis of right knee Current Visit: No Status: Chronic (5) Asthma Current Visit: Yes Status: Chronic Qualifiers: Asthma severity: mild Asthma complication type: uncomplicated (6) Bipolar disorder Current Visit: No Status: Chronic (7) COPD (chronic obstructive pulmonary disease) Current Visit: Yes Status: Chronic Qualifiers: COPD type: unspecified COPD Qualified Code(s): J44.9 - Chronic obstructive pulmonary disease, unspecified (8) HTN (hypertension) Current Visit: Yes Status: Chronic Qualifiers: Hypertension type: unspecified Qualified Code(s): I10 - Essential (primary ) hypertension (9) Nicotine dependence Current Visit: No Status: Chronic Qualifiers: Nicotine product type: cigarettes Substance use status: uncomplicated Qualified Code(s): F17.210 - Nicotine dependence, cigarettes, uncomplicated (10) Obesity Current Visit: Yes Status: Chronic Qualifiers: Obesity type: due to excess calories Obesity classification: adult class 1 (BMI 30 - 34.9) Serious obesity comorbidity presence: unspecified whether serious comorbidity present Body mass index: BMI 32.0-32.9 Qualified Code(s) : E66.09 - Other obesity due to excess calories; Z68.32 - Body mass index (BMI) 32.0-32.9, adult (11) Osteoarthritis of knees, bilateral Current Visit: No Status: Chronic Qualifiers: Osteoarthritis type: unspecified Qualified Code(s): M17.0 - Bilateral primary osteoarthritis of knee (12) Use of cane as ambulatory aid Current Visit: Yes Status: Chronic - AMA Did Patient Leave Against Medical Advice: Yes (going home)
[2018-07-10] MEDS ORDERED: chlordiazePOXIDE HCL 10 MG CAPSULE PO SCH (23:00)
== END 2018-07-10 12:31 | disposition left against medical advice (07) | DRG 770 ==
LOC: YASAS 18:08 → Y6N 21:58
PROVIDERS: ADMIT Neuromusculoskeletal Medicine & OMM; ATTEND Neuromusculoskeletal Medicine & OMM
PROC: HZ2ZZZZ Detoxification Services for Substance Abuse Treatment (ICD-10-PCS; principal; 2018-07-07)
DX: F10.230 Alcohol dependence with withdrawal, uncomplicated (principal); F11.20 Opioid dependence, uncomplicated; F17.210 Nicotine dependence, cigarettes, uncomplicated; F10.282 Alcohol dependence with alcohol-induced sleep disorder; F31.9 Bipolar disorder, unspecified; I10 Essential (primary) hypertension; J44.9 Chronic obstructive pulmonary disease, unspecified; J45.909 Unspecified asthma, uncomplicated; M17.0 Bilateral primary osteoarthritis of knee; E66.09 Other obesity due to excess calories; Z68.33 Body mass index [BMI] 33.0-33.9, adult; R26.89 Other abnormalities of gait and mobility; Z99.89 Dependence on other enabling machines and devices
CPT/HCPCS: 36415; 80053; 81003; 85027; 86593; J0735